=== PATIENT | male | born 1965 | race Caucasian/White ===

== ENCOUNTER 2023-10-21 05:42 | Inpatient (IN) | payer MEDICARE, OTHER ==
[~2023-10-21] VITALS: Ht 177.8 cm; Wt 61.0 kg
[~2023-10-21 05:42] MED LIST: DIVALPROEX SOD500 M1 PO; DOXEPIN HCL50 MG PO; FENOFIBRATE160 MG PO; LISINOPRIL20 MG PO; METFORMIN HCL500 M1 PO; NORCO 5-325 TA1 EACH PO; PIOGLITAZONE HC30 MG PO; SIMVASTATIN40 MG PO; SYNTHROID88 MCG PO; ZIPRASIDONE HCL80 MG PO
[2023-10-21 06:27] LABS: BASOPHILS 0.1 % (0-2); EOSINOPHILS 0.1 % (0-6); HEMATOCRIT 42.5 % (35.0-50.0); HEMOGLOBIN 14.3 g/dL (12.0-18.0); LYMPHOCYTES 1.9 % (24-44); MCH 33.1 (27-36); MCHC 33.7 g/dl (30-36); MCV 98.3 fl (81-99); MONOCYTES 5.3 % (0-12); NEUTROPHILS 92.6 % (39-80); PLATELET COUNT 295 K/uL (140-440); RBC 4.32 M/ul (4.3-5.7); RDW 12.6 (10.5-15.0)
[2023-10-21 06:42] LABS: ALCOHOL, MEDICAL <3 ng/dL (<3); ALT (SGPT) 26 U/L (14-59); ANION GAP 15.7 (7-21); AST (SGOT) 27 U/L (15-37); BUN/CREATININE RATIO 17.15 (6.0-28.6); CALCIUM 9.9 mg/dL (8.5-10.1); CARBON DIOXIDE 26 mmol/L (21-32); CHLORIDE 91 mmol/L (98-107); CREATININE, SERUM 1.69 mg/dL (0.70-1.30); GLOMERULAR FILTRATION RATE,EST 46 mL/min (>60); POTASSIUM 4.7 mmol/L (3.5-5.1); UREA NITROGEN 29 mg/dL (7-18)
[2023-10-21 07:01] LABS: ALBUMIN 2.6 g/dL (3.4-5.0); ALBUMIN/GLOBULIN RATIO 0.45 (1.1-2.4); ALKALINE PHOSPHATASE 146 U/L (46-116); BILIRUBIN, TOTAL 0.5 ng/dL (0.2-1.0); PROTEIN, TOTAL 8.4 g/dL (6.4-8.2)
[2023-10-21 07:27] LABS: LACTIC ACID, BLOOD 1.9 mmol/L (0.4-2.0)
[2023-10-21 07:36] LABS: BILIRUBIN, URINE NEGATIVE (negative); BLOOD/HGB, URINE SMALL (Negative); KETONE, URINE SMALL (Negative); LEUK ESTERASE, URINE NEGATIVE (negative); NITRITE, URINE NEGATIVE (negative)
[2023-10-21 07:47] LABS: EPITHELIAL CELLS, URINE SQUAMOUS 1+ /lpf (0-1+); REFLEX CULTURE, URINE No (No)
[2023-10-21 08:23] LABS: AMPHETAMINES, URINE POSITIVE (NEGATIVE); BARBITURATES, URINE NEGATIVE (NEGATIVE); BENZODIAZEPINE, URINE NEGATIVE (NEGATIVE); BUPRENORPHINE, URINE NEGATIVE (NEGATIVE); CANNABINOID, URINE POSITIVE (NEGATIVE); COCAINE, URINE NEGATIVE (NEGATIVE); ECSTASY, URINE NEGATIVE (NEGATIVE); FENTANYL, URINE NEGATIVE (NEGATIVE); METHADONE, URINE NEGATIVE (NEGATIVE); OPIATES, URINE NEGATIVE (NEGATIVE); OXYCODONE, URINE NEGATIVE (NEGATIVE); PHENCYCLIDINE, URINE NEGATIVE (NEGATIVE)
--- NOTE | 2023-10-21 11:18 | NUR ---
Pt arrived to room via ER stretcher and transferred to hospital bed independently, unassisted. Pt report received from RN Vanesa Tyler. Pt is A&O x4, breathing is regular, even, and non-labored, and he is able to speak in full and complete sentences. His skin is appropriately colored, warm and dry with poor turgor. He denies any pain at this time. Strength is equal bilaterally in upper and lower extremities and CMS is intact x4, cap refill 2 seconds. Pt's speech is slightly slurred at times (unknown if this is his baseline), and he is also, at times, difficult to understand. He is quick to respond to questions, appropriately, but immediately starts talking about random topics, mostly about his brother and how he steals from him and folds papers "weird". Pt's lungs are clear, diminished, and he has a cough that sounds productive at times but is mostly harsh, unable to produce/cough up sputum. IV is patent with good return, flushes well with 10ml NS and 1L bolus LR was started per emar. Pt's CBG was 375; however, the Pyxis is not loading meds for this patient and I have been unable to administer 9 units of insulin per his emar sliding scale, as of yet. Pt lunch tray arrived after admission and he has been eating some of his food. He advised, while admitting questions were asked, that he hasn't eaten food since "last " and that he's been drinking lots of "milk" for his food. He states he had milk this morning before coming to the ED. Side rails up x4, warm blanket provided, call light in reach, pt oriented to room and instructed on use of call light. Pt verbalized understanding and questions were answered.
[2023-10-21 11:31] VITALS: BP 117/65
[2023-10-21 11:58] LABS: VALPROIC ACID 10 ug/mL (50-100)
--- NOTE | 2023-10-21 13:07 | NUR ---
ATTEMPTING TO ASSIST PT WITH LOCATING A PHONE NUMBER FOR NEXT OF KIN CONTACT INFORMATION. PT STATES HE HAS A SISTER NAMED "KARL" THAT HE IS COMFORTABLE WITH US CONTACTING IF NEEDED, BUT HE DOESN'T KNOW HER PHONE NUMBER. HE STATES HE HAS IT WRITTEN DOWN IN HIS WALLET BUT HAS PULLED ALL THE PAPERS OUT OF HIS WALLET AND HAS NOT LOCATED HER NUMBER YET. HE DOESN'T KNOW HIS BROTHER'S NUMBERS AND STATES, IF I READ A NUMBER OUT TO HIM, HE WOULDN'T BE ABLE TO TELL ME WHOSE IT WAS. I ENCOURAGED HIM TO KEEP TRYING TO FIND HIS SISTER'S NUMBER. HE AGREED TO KEEP LOOKING.
--- NOTE | 2023-10-21 13:25 | NUR ---
ADVISED BY KOBY CARTY CIVIL RIGHTS INVESTIGATOR, THAT THE PT LOCATED HIS SISTER'S PHONE NUMBER AND THAT SHE WROTE IT ON THE BOARD IN HIS ROOM. SHE ALSO ADVISED THAT SHE ASSISTED THE PT TO THE TOILET.
[2023-10-21 14:01] VITALS: BP 146/78
--- NOTE | 2023-10-21 14:05 | NUR ---
Pt's sister, Mckenna Orellana, called to request and update on her brother. I obtained permission from the pt prior to updating his sister. The pt gave verbal permission to let his sister know why he's here and any updates on his care. She left her phone number for us to call if we need anything, and also advised that their sister, Kelsy, is out of town. Shortly after concluding this phone call, the pt's brother, Vicente, arrived to visit the pt. He entered the pt's room and began to question the pt as to why he didn't "come and wake me up this morning instead of calling 911", and proceeded to argue with the pt. I left the room to give them some privacy and the brother exited the room about 60 seconds after I did.
--- NOTE | 2023-10-21 15:23 | NUR ---
In with pt for late sliding scale insulin administration (medications not loaded under pt's name in pyxis, scrap charger had to override, pharmacy is aware). Pt is resting with eyes closed, on his left side, in bed. Lights are off and he is snoring softly. Breathing is regular and even, non-labored, only the soft snoring. Pt does not fully awaken but motions "ok" with his hand when advised that I am there to administer some insulin into the skin in the back of his arm, and he turns his arm so I can reach the back. After administration of insulin sq, the pt seems to fall right back to sleep. LR running at 100ml/hr per emar. Call light in reach. Side rails up x4.
--- NOTE | 2023-10-21 17:23 | NUR ---
In with pt for med administration and insulin with dinner for cbg of 326. Pt is resting semi supine, leaned slightly towards his left side, snoring softly. breathing is regular and non-labored. IV fluids running at ordered rate. Side rails up x4, call light in reach, dinner tray on bedside table. Pt is easily awakened to voice. Dinner set up for pt and insulin and ABX administered per emar.
[2023-10-21 17:28] VITALS: BP 139/66
--- NOTE | 2023-10-21 17:36 | NUR ---
Pt's VS obtained, he is tachypneic, slightly tachycardic 100-112, T99.8 orally, spo2 88% on room air. Pt was placed on 2LPM via NC which increased his O2 to 91% while he is eating his dinner. Will reassess after he finishes eating and will monitor. Pt is A&O x4, skin is appropriately colored, no increased work of breathing, just breathing at a rate, currently of 24bpm, even respirations, through his nose. Pt given tylenol per emar for headache and pain in his chest from coughing. Call light in reach, side rails up x4.
--- NOTE | 2023-10-21 19:44 | NUR ---
REPORT RECEIVED FROM JUAN GALAN. pt RESTING IN BED ASLEEP, SPOT CHECK SPO2 92% WITH 2L OXYGEN BY NC IN PLACE. pt DENIES NEEDS. TRAY TABLE CLEARED. CALL LIGHT IN REACH. BED ALARM ON.
--- NOTE | 2023-10-21 22:04 | NUR ---
PT ASLEEP, AWAKEN FOR ACCUCHECK, BG 174, RESULTS REPORTED TO KERRY MARTINEZ. PT WITHOUT REQUESTS AT THIS TIME.
--- NOTE | 2023-10-21 22:10 | NUR ---
REPORT RECEIVED FROM KERRY MARTINEZ, ASSUMING CARE OF PT AT THIS TIME.
[2023-10-21 22:17] VITALS: BP 114/58
--- NOTE | 2023-10-21 22:18 | NUR ---
RN TO BEDSIDE, PT AWAKEN FOR VS, VS DONE AND NOTED TEMP 99.7 PO, OXYGEN SATS 88-90, OXYGEN TURNED UP TO 3L/NC WITH SATS RISING TO 92%, ASSESSMENT COMPLETED, MOIST COUGH AT TIMES, PT STATES IT IS PAINFUL TO COUGH AT TIMES, BREATH SOUNDS CLEAR JOANNA AND LLL, BUT DIM RUL AND RLL, IV SITE PATENT, IV INFUSING WELL WITH LR AT 100ML/HR, PANTS REMOVED AND BELONGINGS PLACED IN ROOM LOCK BOX (2 SETS OF KEYS, DIRECTOR WATER AND WASTE SERVICES, CHAP STICK, ROCK AND 2 SMALL PIECES OF PAPER), WARM BLANKET GIVEN, PT ALERT, COOPERATIVE, AT TIMES RAMBLES IN SPEECH, PT TURNED TO LEFT SIDE ATTEMPTING TO SLEEP..
--- NOTE | 2023-10-22 00:50 | NUR ---
PT APPEARS TO SLEEP, RESP EVEN AND REG, LAYING ON LEFT SIDE, OX SAT 99%, FIO2 DECREASED TO 2L/NC, IVF INFUSING WELL, PT WITHOUT DISTRESS.
[2023-10-22 02:13] VITALS: BP 119/62
--- NOTE | 2023-10-22 02:17 | NUR ---
PT ASLEEP, AWAKEN FOR VS, PT FEBRILE AT 99.9 PO, PT SKIN MOIST, WARM, PT MEDICATED WITH TYLENOL 650MG PER ORDER FOR FEVER, PT DENIES NEED TO VOID OR FOR A DRY GOWN, PT TURNED SELF TO RIGHT SIDE, BREATH SOUNDS CLEAR RUL, CLEAR BUT DIM RLL, COARSE BUT DIM JOANNA AND LLL, MOIST NONPRODUCTIVE COUGH, AFTER TURNING TO RIGHT SIDE, SATS DOWN TO 88-90%, FIO2 INCREASED TO 3L/NC, ACCUCHECK DONE DUE TO SWEATY SKIN, 155, IV PATENT, IVF INFUSING WELL.
--- NOTE | 2023-10-22 02:50 | NUR ---
NURSE CALLED TO ROOM, PT DESIRES TO STAND AT BEDSIDE TO VOID, PT STEADY WITH STANDING, VOIDED 300ML BABAK URINE, PT DESIRES TO SIT ON SIDE OF BED FOR A WHILE.
--- NOTE | 2023-10-22 03:10 | NUR ---
PT GOT HIMSELF BACK IN BED, APPEARS TO SLEEP, IVF INFUSING WELL, SITE INTACT, OXYGEN SATS 88% FIO2 INCREASED TO 3.5 L/NC.
[2023-10-22 05:36] LABS: HEMATOCRIT 34.4 % (35.0-50.0); HEMOGLOBIN 11.5 g/dL (12.0-18.0); MCH 32.7 (27-36); MCHC 33.6 g/dl (30-36); MCV 97.5 fl (81-99); PLATELET COUNT 289 K/uL (140-440); RBC 3.53 M/ul (4.3-5.7)
[2023-10-22 05:40] VITALS: BP 115/62
--- NOTE | 2023-10-22 05:40 | NUR ---
PT ASLEEP, AWAKEN BRIEFLY FOR VS, TEMP 99.5 PO, IV PATENT AND INFUSING WELL, LAB RECENTLY IN FOR AM BLOOD WORK. OXYGEN TURNED DOWN TO 3L/NC WHEN SAT AT 97%, SATS REMAIN 97-98% WITH DECREASE OF OXYGEN.
--- NOTE | 2023-10-22 05:46 | EKG ---
[facility] [address] [place], [place] [address] Signed Sinus tachycardia Biatrial enlargement Minimal voltage criteria for LVH, may be normal variant ( Sokolow-Sharp ) Abnormal ECG No previous ECGs available Confirmed by YAO DESOUZA MD ([id number]) on 10/22/2023 5:45:49 AM Electronically Signed By: AYO DESOUZA 10/22/23 0546 PATIENT NAME: CHAD CACERES Electrocardiogram DATE OF : 65 PHYSICIAN: AYO DESOUZA REPORT #: [id number] REPORT IS CONFIDENTIAL AND NOT TO BE RELEASED WITHOUT AUTHORIZATION
[2023-10-22 05:55] LABS: BUN/CREATININE RATIO 24.24 (6.0-28.6); CREATININE, SERUM 1.32 mg/dL (0.70-1.30)
[2023-10-22 06:16] LABS: BANDS, MANUAL DIFF 3; LYMPHOCYTES, MANUAL DIFF 7; MONOCYTES, MANUAL DIFF 5; NEUTROPHILS, MANUAL DIFF 85
--- NOTE | 2023-10-22 06:37 | NUR ---
PT ASLEEP, RESP EVEN AND REG, HOB ELEVATED APPROX 30%, OX SAT 97-98%, FIO2 DECREASED TO 2L/NC.
--- NOTE | 2023-10-22 07:30 | NUR ---
Pt report received from JUAN Loza. Pt is asleep on his right side. Call light in reach.
--- NOTE | 2023-10-22 08:21 | NUR ---
UR NOTE MCG PNEUMONIA: OBSERVATION CARE (ISC) 10/21/23 MET OBSERVATIO CARE ADMISSION CRITERIA
--- NOTE | 2023-10-22 08:42 | NUR ---
In with pt for med administration per emar. Pt is asleep, breathing regular, even, and non-labored and he is snoring softly, eyes closed. Wakes easily to gentle touch on shoulder and voice. IV fluids running per emar. Breakfast tray at bedside. call light in reach.
--- NOTE | 2023-10-22 09:00 | NUR ---
In with pt, Dr. Arevalo in for assessment. Pt is sitting up in bed eating his breakfast. Room air spo2 87% and dropped as low as 83%. Pt was placed on 2LPM via NC which increased his sats to 84-86. O2 increased to 4LPM which increased sats to 87%. Pt was placed on 4LPM via oxymask which increased his spo2 to 92%. Pt is tachypneic at 28-32, and tachycardic ranging from 102-126.
[2023-10-22 09:33] VITALS: BP 118/66
--- NOTE | 2023-10-22 11:20 | NUR ---
Attempted to see pt x 2 this am. Pt now somewhat awake and willing to speak with CM. Pt states he lives with his brother. There are 6 steps into the home. Pt states it is hard to get into and out of the home now since he has not been feeling well. Pt is difficult to follow as he is frequently speaking about his brother and family members and he is angry. I am unable to follow the conversation. Pt would like to go home on DC. 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 I attempted to discuss his meth use and he states his brother makes him take drug and then begins speaking rapidly. I asked if he would like to see [employer] and if he would be willing to work with their A&D program. He states he would. I will contact [employer] and request a referral to the ACT team. Per the ER notes, pt has not been taking his thyroid and DM meds correctly. He is unable to tell me if he takes his pych meds correctly.
[2023-10-22 14:50] VITALS: BP 136/76
--- NOTE | 2023-10-22 15:00 | NUR ---
PT IS UP IN CHAIR, SITTING AT THE EDGE OF IT, EYES CLOSED. ENCOURAGED PT TO SCOOT BACK IN HIS CHAIR OR GET BACK INTO BED. PT STATES HE IS NOT FALLING ASLEEP AND HE UNDERSTANDS THAT HE COULD GET HURT BUT HE IS "FINE WHERE I'M AT, I PROMISE I'M NOT SLEEPING AND I WON'T FALL". PT STATES HE UNDERSTANDS HE NEEDS TO USE HIS CALL LIGHT IF HE WANTS TO GET BACK INTO BED. CALL LIGHT IN REACH.
--- NOTE | 2023-10-22 15:52 | NUR ---
UR NOTE MCG PNEUMONIA (ISC) INPATIENT 10/22/23 MET CLINICAL INDICATIONS FOR ADMISSION TO INPATIENT CARE GL DAY 1
--- NOTE | 2023-10-22 16:00 | NUR ---
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 Will try again in the AM.
--- NOTE | 2023-10-22 18:14 | NUR ---
PT HAS BEEN IN BED AND SLEEPING FOR THE MAJORITY OF THIS SHIFT. RT HAS BEEN IN WITH PT FOR TOBACCO CESSATION COUNSELING AND THE PT HAS BEEN UTILIZING THE RESPIRATORY THERAPY TOOLS ORDERED, ALLOWING MORE MUCOUS TO BREAK UP WHEN HE COUGHS. THE PT HAS REPORTED LESS PAIN IN HIS CHEST TODAY WITH COUGHING, BUT HE HAS HAD SPO2 SATS IN THE 80S AND LOW 90S THROUGHOUT THE SHIFT. O2 VIA OXYMASK HAS BEEN TITRATED THROUGHOUT THE SHIFT TO MAINTAIN SATS AT OR ABOVE 92%. THEY SEEM TO DECREASE WHEN HE IS SITTING UP IN BED EATING, OR SITTING UP THE CHAIR (WHICH HE DID FOR A COUPLE OF HOURS THIS AFTERNOON). THE PT HAS NOT HAD MUCH TO EAT TODAY, COMPLAINING THAT HE CAN'T TASTE ANYTHING AND THAT IT MAKES HIS MOUTH VERY DRY. DR. DESOUZA ORDERED A COVID TEST. PT HAS VOIDED X2 IN THE URINAL WITH APPROXIMATELY 300ML DARK BABAK URINE EACH TIME. HE USES THE CALL LIGHT APPROPRIATELY.
[2023-10-22] MEDS ORDERED: MELATONIN10 M2 PO (18:44)
--- NOTE | 2023-10-22 18:45 | NUR ---
MED REC COMPLETE
[2023-10-22 19:12] VITALS: BP 133/75
--- NOTE | 2023-10-22 19:15 | NUR ---
SHIFT REPORT RECEIVED FROM ADAMA MARTINEZ.
[2023-10-22 19:22] LABS: INFLUENZA B NAA NEGATIVE (NEGATIVE); RESPIRATORY SYNCYTIAL VIR NAA NEGATIVE (NEGATIVE)
--- NOTE | 2023-10-22 19:30 | NUR ---
PT RESTING QUIETLY IN BED, AWAKEN AND PLEASANT, OXYGEN MASK IN PLACE AT 4L, CPOX SAT 92%, PT DENIES COMPLAINTS AT THIS TIME, BED LOW POSITION, SIDE RAILS UP X 2.
[2023-10-22 20:50] VITALS: BP 140/74
--- NOTE | 2023-10-22 20:50 | NUR ---
VS COMPLETED, OXYGEN MASK REMOVED AND NC IN PLACE AT 4L/NC, SATS AT 92%, PLAN TO MONITOR, PT ALERT AND COOPERATIVE.
--- NOTE | 2023-10-22 21:05 | NUR ---
ACCUCHECK DONE, CURRENTLY AT 198, SS HUMALOG 3 UNITS GIVEN , RT LONG ACTING INSULIN GIVEN PER ORDER WITH RT MEDICATIONS. PT MEDICATED WITH TYLENOL FOR RIB DISCOMFORT, ASSESSMENT COMPLETED, PT TALKATIVE, COOPERATIVE AND PLEASANT, ENSURE GIVEN PER REQUEST. PT RESTING, SIDE RAILS UP X 4, BED LOW POSITION, CALL LIGHT IN REACH, HOB ELEVATED APPROX 25 DEGREES.
--- NOTE | 2023-10-22 22:30 | NUR ---
PT APPEARS TO SLEEP, RESP EVEN AND REG, CPOX AT 95%, HR 106 AND RESP RATE 24, WITHOUT SIGNS OF DISTRESS, OXYGEN REMAINS AT 4L/NC.
--- NOTE | 2023-10-23 | NUR ---
PT APPEARS TO SLEEP, LAYING ON RIGHT SIDE, OXYGEN NOTED TO BE IN PLACE, CPOX AT 97%, HR 97 AND RESP RATE OF 24/MIN, URINAL EMPTIED FOR 300ML BABAK URINE.
--- NOTE | 2023-10-23 01:00 | NUR ---
PT CONTINUES TO SLEEP, WITHUT REQUESTS AT THIS TIME.
--- NOTE | 2023-10-23 02:45 | NUR ---
PT ASLEEP, LAYING ON RIGHT SIDE, OXYGEN IN PLACE AND CONTS AT 4L/NC, SATS 96%, RESP RATE 24/MIN.
--- NOTE | 2023-10-23 04:02 | NUR ---
PT LAYING ON LEFT SIDE, RESP EVEN AND REG, O2 SAT 96%,
[2023-10-23 05:10] VITALS: BP 130/81
--- NOTE | 2023-10-23 05:10 | NUR ---
LAB INTO DRAW AM BLOOD, PT SLEEPY BUT ALERT, VS STABLE, AFEBRILE, PT'S GOWN DAMP, CHANGED, PT C/O LEFT RIB PAIN WITH COUGHING, PT VOIDING PER URINAL.
--- NOTE | 2023-10-23 05:21 | NUR ---
PT MEDICATED WITH TYLENOL FOR LEFT SIDED RIB PAIN, FRESH WATER GIVEN, PT DENIES OTHER REQUESTS, ATTEMPTING TO REST.
[2023-10-23 05:31] LABS: BASOPHILS 0.1 % (0-2); EOSINOPHILS 0.1 % (0-6); HEMATOCRIT 36.5 % (35.0-50.0); HEMOGLOBIN 12.1 g/dL (12.0-18.0); LYMPHOCYTES 5.7 % (24-44); MCV 96.9 fl (81-99); MONOCYTES 7.6 % (0-12); NEUTROPHILS 86.5 % (39-80); PLATELET COUNT 363 K/uL (140-440); RBC 3.77 M/ul (4.3-5.7); RDW 13.2 (10.5-15.0)
[2023-10-23 05:41] LABS: BUN/CREATININE RATIO 22.68 (6.0-28.6); CALCIUM 9.1 mg/dL (8.5-10.1); CREATININE, SERUM 1.19 mg/dL (0.70-1.30)
--- NOTE | 2023-10-23 06:48 | NUR ---
PT ASLEEP, RESP EVEN AND REG, SATS 94%.
--- NOTE | 2023-10-23 07:42 | NUR ---
BEDSIDE REPORT FROM HS NURSE, PATIENT APPEARED TO BE RESTING WITH EYES CLOSED. CALL LIGHT WITHIN REACH.
--- NOTE | 2023-10-23 07:51 | NUR ---
DID PATIENT'S BLOOD SUGAR CHECK. PATIENT IS BACK TO SLEEP. UPDATE WHITE BOARD.
[2023-10-23 09:12] VITALS: BP 136/75
--- NOTE | 2023-10-23 09:50 | NUR ---
Attempted to speak with pt today. Initially he was able to answer questions and agree to follow up appt with Denise at [facility]. He is also agreable to speak with their drug counselors. He then began speaking rapidly, stating his brother is in his cell phone. He has phone numbers from the "coffee hour" to turn people in for their drug use. I was not able to follow the conversation. He denies needs and is eating his breakfast. I attempted to contact Denise at [facility], but there was 0 answer at the main number. I will attempt to call again later.
--- NOTE | 2023-10-23 10:00 | NUR ---
FULL BODY ASSESSMENT DONE, PATIENT INTO BATHROOM, SHOWERED SELF THEN TO RECLINER. CHANGED LINEN. VS WNL. ADMINISTERED MORNING MEDICATION. PATIENT EATING BREAKFAST. PATIENT 94% ON 4L NC. NOTED DRY NASAL, APPLIED HUMIDIFICATION. CALL LIGHT WITHIN REACH.
--- NOTE | 2023-10-23 11:22 | NUR ---
Attempted to call [employer]. No answer.
--- NOTE | 2023-10-23 14:00 | NUR ---
PATIENT HAD COUGHING ATTACK, APPEARED TIRED AND RESTLESS. OXYGEN SATURATION 94% ON 3L NC. LUNG SOUNDS COURSE IN UPPER LOBES AND DIMINISHED IN BASES/ PATIENT USING IS AND ACUPELLA. STATES " I DON'T LIKE RATTLING MY SELF WITH THE HORN".
[2023-10-23 14:13] VITALS: BP 140/73
--- NOTE | 2023-10-23 15:15 | NUR ---
Called and left a message for Denise, case management coordinator, from [facility]. Requested a return call.
--- NOTE | 2023-10-23 18:00 | NUR ---
DISCUSSED PATIENT COUGHING ATTACKS AND WHAT APPEAR TO BE BRONCHOSPASMS WITH DR. DESOUZA. PATIENT REPORTS HE IS FEELING WORSE. NOTED INCREASED CONGESTION. DR. DESOUZA TO BEDSIDE, ORDERED OCEAN SPRAY FOR NASAL CONGESTION. REQUESTED BREATHING TREATMENTS AND DISCUSSED STEROID TREATMENT, NO NEW ORDERS FOR THOSE AT THIS TIME. DR. DESOUZA REPORTED WOULD RE-ASSESS IN THE MORNING.
[2023-10-23 19:01] VITALS: BP 165/80
--- NOTE | 2023-10-23 19:30 | NUR ---
RECEIVED REPORT FROM DAY SHIFT RN. PATIENT IS RESTING IN BED. PATIENT DENIES ANY SOB. PATIENT IS ON 3L VIA NC. CPOX READINGS ARE WNL. PATIENT DENIES ANY NEEDS. CALL LIGHT IN REACH.
[2023-10-23 19:58] VITALS: BP 159/71
--- NOTE | 2023-10-23 20:35 | NUR ---
PATIENTS VITALS TAKEN AND RECORDED. INTAKE AND OUTPUT RECORDED. PATIENTS ASSESMENT COMPLETED. PATIENTS IV FLUSHED AND SL PER ORDER. PATIENT REMAINS ON 3L VIA NC AND DENIES ANY SOB. CPOX IN USE. PATIENTS PM MEDS GIVEN PER ORDER. PATIENT RATES LEFT SIDED RIB PAIN AT A 2/10, PRN TYLENOL GIVEN PER ORDER. PATIENT LULU ANY FURTHER NEEDS AT THIS TIME. PATIENTS CALL LIGHT AND BELONGINGS ARE WITHIN REACH.
--- NOTE | 2023-10-23 22:24 | NUR ---
PATIENT IS RESTING IN BED ON RIGHT SIDE WITH EYES CLOSED, CPOX READINGS ARE WNL. PATIENTS CALL LIGHT IN REACH.
--- NOTE | 2023-10-23 23:42 | NUR ---
PATIENT IS RESTING IN BED WITH EYES CLOSED, CPOX READINGS ARE WNL. CALL LIGHT IN REACH. URINAL EMPTIED.
--- NOTE | 2023-10-24 01:24 | NUR ---
PATIENT IS RESTING IN BED WITH EYES CLSOED, CPOX READINGS ARE WNL. CALL LIGHT IN REACH.
--- NOTE | 2023-10-24 03:33 | NUR ---
PATIENT IS RESTING IN BED WITH EYES CLSOED, CPOX READINGS ARW WNL. CALL LIGHT IN REACH.
[2023-10-24 05:43] LABS: HEMATOCRIT 36.3 % (35.0-50.0); RBC 3.72 M/ul (4.3-5.7)
[2023-10-24 05:46] LABS: MCH 32.3 (27-36); MCV 97.7 fl (81-99); PLATELET COUNT 387 K/uL (140-440); RDW 13.4 (10.5-15.0)
[2023-10-24 05:54] LABS: BUN/CREATININE RATIO 17.3 (6.0-28.6); CALCIUM 9.1 mg/dL (8.5-10.1); CREATININE, SERUM 1.04 mg/dL (0.70-1.30)
[2023-10-24 05:57] LABS: BANDS, MANUAL DIFF 4; LYMPHOCYTES, MANUAL DIFF 6; MONOCYTES, MANUAL DIFF 8; NEUTROPHILS, MANUAL DIFF 82
[2023-10-24 06:12] VITALS: BP 141/85
--- NOTE | 2023-10-24 06:32 | NUR ---
PATIENTS VITALS TAKEN AND RECORDED. PATIENT INCONT OF STOOL. PATIENT GIVEN WIPE DOWN BATH WITH SOAP AND WASH RAGS. ATTEND IN PLACE. PATIENTS BEDDING CHANGED. PATIENTS INTAKE AND OUTPUT RECORDED. PATIENT DENIES ANY PAIN OR SOB. PATIENT REMAINS ON 3L VIA NC. PATIENT IS BACK IN BED RESTING. PATIENT DENIES ANY FURTHER NEEDS. CALL LIGHT IN REACH. PATIENTS IV FLUSHED AND SL PER ORDER. CPOX IN USE.
--- NOTE | 2023-10-24 08:00 | NUR ---
PT ON 3LNC, CPOX AT BEDSIDE, SATS 92%, SWHEN SITTING UP IN BED FOR ASSESSMENT, INCREASED MOIST PRODUCTIVE COUGH PRESENT W EXPECTORATION OF SMALL AMOUNT OF VERY THICK CLEAR PHLEGM. C/O MILD DISCOMFORT ON LEFT SIDE. LUNGS CLEAR UPPERS AND DIM R, RHONCHI AND DIM AT LEFT LOWER. SL LFA PATENT. UP TO CHAIR WITH MINIMUM OF ASSIST, USED URINAL. IN CHAIR NOW, LEGS ELEVATED, TOLERATED WELL. CBG 162, RECEIVED 1 UNIT SS INSULIN. O2 NOT CHRONIC, DR DESOUZA IN ROOM EARLIER. RT IN ROOM EXPLAINING VPA
--- NOTE | 2023-10-24 09:06 | NUR ---
REFERRAL REQUEST FOR ACT TEAM ASSISTANCE FAXED TO [employer] @ [phone].
--- NOTE | 2023-10-24 09:47 | NUR ---
RECVD CALL FROM DARRIN, PATIENTS COUNSELOR AT [facility]. UPDATE GIVEN. DARRIN WILL DISCUSS WITH THE CRISIS TEAM AND COME VISIT THE PATIENT. DIANA MARTINEZ UPDATED.
[2023-10-24 10:06] VITALS: BP 151/80
--- NOTE | 2023-10-24 10:17 | NUR ---
Pt up to br earlier, was incontinent of loose stool, plus more liquid stool in toilet. did own skin care, light redness between gluteal folds, barrier cream applied. fresh attends in place. voided using urinal, dark yellow urine. O2 in place. Back to room, noticed that pulse was 122 on return, inmediately went down to 108-100 when laying down in bed, daxa sob, no increase in respiration noted. Dr Arevalo notified verbally. .
--- NOTE | 2023-10-24 11:19 | NUR ---
Up to shower w O2, slow getting out of bed, no sob. SBA, sats 91% 3L NC pulse 107, R18
--- NOTE | 2023-10-24 11:22 | NUR ---
BC results - carlos nicole, Dr Arevalo aware
--- NOTE | 2023-10-24 11:44 | NUR ---
UR NOTE MCG PNEUMONIA (ISC) INPATIENT 10/23/23 VARIANCE GL DAY 2 10/24/23 VARIANCE GL DAY 2
--- NOTE | 2023-10-24 11:48 | NUR ---
KARTHIKEYAN SEBASTIAN NOTIFIED OF PT READY FOR ABGS'S. DR DESOUZA NOTIFIED VERBALLY OF PTS INCREASED PULSE RATE WITH EXERTION - PULSE 107, RESP 18, SATS 91% ON 3L SITTING POSITION PRIOR TOG ETTIING UP TO SHOWER. AFTER RETURNING FROM SHOWER, STANDING -PULSE-122, R20, O2 SATS ON 3L 93%, R20, O2 SATS ON 3LNC 93%. ---- AFTER GETTING IN BED PULSE 107, RESP 16-18, PULSE 96% ON 3LNC. PT DENIES SOB OR PAIN ON RETURN, TOLERATED WELL.
--- NOTE | 2023-10-24 12:07 | NUR ---
ABG'S DONE BY RT PER ORDERS
--- NOTE | 2023-10-24 12:11 | NUR ---
[employer] WORKER IN ROOM TALKING TO PT
--- NOTE | 2023-10-24 12:14 | NUR ---
SHOWERED EARLIER, SEE PREVIOUS NOTES. CURRENTLY LAYING IN BED, [employer] WORKER IN ROOM
[2023-10-24 13:27] VITALS: BP 141/75
--- NOTE | 2023-10-24 13:38 | NUR ---
pt was resting, eyes closed, no distress. O2 3LNC in place, CPOX readings P104, R16, O2 sats 90%. Awakens easily and up to chair with minimum of assist. Up in hcair at this tiime, as per CPOX P118, R18, sats 91% on 3LNC, tolerated well, denies SOB or CP. Moist slightly productive at times cough. Coop with assessment, L Lung dim t/o with exp crackles at bases. Dr Arevalo notified verbally. no new orders
--- NOTE | 2023-10-24 14:00 | NUR ---
RECIEVED HAND OFF REPORT FROM JUAN ORTIZ.
--- NOTE | 2023-10-24 14:19 | NUR ---
PT UP IN CHAIR EATING, NO C/O PAIN OR SOB. O2 3LNC IN PLACE.
--- NOTE | 2023-10-24 14:35 | NUR ---
PT SITTING IN RECLINER WORKING ON HIS ACAPELLA. PT DENIES ANY DISCOMFORT AT THIS TIME. CALL LIGHT IN REACH.
--- NOTE | 2023-10-24 15:12 | NUR ---
PATIENT UP IN CHAIR FOR AND AFTER LUNCH. HE ATE 100% OF THE POT ROAST, A FEW BITES OF MASHED POTATOES/GRAVY, AND 100% OF SF JELLO. HE DIDN'T DRINK HIS MILK BUT HE DOES LIKE MILK. HIS APPETITE IS FAIR DUE TO SOME MEALS THE TASTE ISN'T GOOD TO HIM SO HE DOESN'T EAT MUCH OF IT. STATES HE HASN'T HAD ANY WEIGHT LOSS, THAT HE MAINTAINS 140-145 LBS WELL. HIS TEETH ARE IN GOOD, STRONG CONDITION. HE HAS NO CHEWING OR SWALLOWING DIFFICULTIES. LIKES RAW CARROTS, NOT COOKED. HE NORMALLY WALKS FOR EXERCISE SINCE HE CAN'T DRIVE. HE TRIES NOT TO CONSUME HFCS, AND HE LIMITS HIS BREAD AND POTATO INTAKE DUE TO SPIKING HIS BLOOD SUGAR. CURRENT DIET IS 60 GM CONS CARB WHICH IS APPROPRIATE. NO NUTRITION INTERVENTION NEEDED AT THIS TIME.
--- NOTE | 2023-10-24 16:25 | NUR ---
PT REQUESTED TO GO ON A WALK. PT WALKED TO THE END OF WATTS NEAR [facility]. WAS ABLE TO MAINTAIN SPO2 AT 93% ON RA, HR SUSTAINED IN 120S. MEANWHILE WORKING ON DEEP BREATHING. PT BEGAN TO TALK MORE, SPO2 DECREASED TO 81%. PT SAT IN WHEEL CHAIR AND ENCOURAGE TO TAKE DEEP BREATHES. SPO2 INCREASED TO 95% RA, HR REMAINED IN THE 120S. PT REQUESTED TO GO TO ROOM AND BLOW NOSE AND WALK TO THE CENTER AND BACK. SPO2 REMAINED AT 95% ON RA. LAKESHA JOLLY ASSISTED WITH AMBULATION. THIS RN FOLLOWED WITH WHEELCHAIR.
[2023-10-24 18:50] VITALS: BP 149/84
--- NOTE | 2023-10-24 19:42 | NUR ---
PATIENT RESTING IN BED WATHCING TV. PATIENT REPORTS NO FURTHER NEEDS. CALL LIGHT IN REACH.
[2023-10-24 20:33] VITALS: BP 153/77
--- NOTE | 2023-10-24 21:04 | NUR ---
PATIENT RESTING IN BED. VS AND I&Os OBTAINED AND RECORDED. O2 SAT 87% ON RA, RT IN ROOM AND PLACED PATIENT ON 2L NC. PATIENT TEMP 100.1. SCHEDULED MEDICATION GIVEN AND PRN MEDICATION GIVEN FOR FEVER, SEE MAR. ASSESSMENT COMPLETE. PATIENT LUNG SOUNDS CLEAR. IV FLUSHED AND SL. PATIENT EDUCATED TO USE IS AND ACAPELLA. PATIENT HAS NO FURTHER NEEDS. CALL LIGHT IN REACH.
--- NOTE | 2023-10-24 22:09 | NUR ---
PATIENT CALLED AND REQUESTED NEW GOWN. PATIENTS GOWN AND BEDDING ARE SOAKED. PATIENT PROVIDED WNEW BEDDING AND GOWN. PATIENT IS BACK IN BED RESTING. PATIENTS TEMP REEVALUATED AND IS WNL. PATIENT IS ON 2L VIA NC. PATIENT DENIES ANY FURTHER NEEDS. CPOX IN USE. CALL LIGHT IN REACH.
--- NOTE | 2023-10-25 00:23 | NUR ---
PATIENT IN BED RESTING ON BACK WITH EYES CLOSED. O2 SAT 97% ON 2L. RESPIRATIONS EVEN AND UNLABORED. CALL LIGHT IN REACH.
--- NOTE | 2023-10-25 02:09 | NUR ---
PATIENT IN BED RESTING ON RIGHT SIDE. 93% ON 2L NC. CALL LIGHT IN REACH. RESPIRATIONS EVEN AND UNLABORED.
--- NOTE | 2023-10-25 04:43 | NUR ---
PATIENT IN BED RESTING ON SIDE WITH EYES CLOSED. REPIRATIONS EVEN AND UNLABORED. PATIENT 92% ON 2L NC. CALL LIGHT IN REACH.
[2023-10-25 05:31] LABS: HEMATOCRIT 34.7 % (35.0-50.0); HEMOGLOBIN 11.4 g/dL (12.0-18.0); MCH 31.7 (27-36); MCHC 32.8 g/dl (30-36); MCV 96.9 fl (81-99); PLATELET COUNT 387 K/uL (140-440); RBC 3.58 M/ul (4.3-5.7); RDW 13.1 (10.5-15.0)
[2023-10-25 05:43] LABS: BUN/CREATININE RATIO 15.38 (6.0-28.6); CALCIUM 8.6 mg/dL (8.5-10.1); CREATININE, SERUM 1.04 mg/dL (0.70-1.30)
[2023-10-25 05:51] LABS: BANDS, MANUAL DIFF 6; LYMPHOCYTES, MANUAL DIFF 14; MONOCYTES, MANUAL DIFF 5; NEUTROPHILS, MANUAL DIFF 75
[2023-10-25 06:13] VITALS: BP 140/76
--- NOTE | 2023-10-25 06:21 | NUR ---
PATIENT RESTING IN BED. AWAKENS EASILY. VS AND I&Os OBTAINED AND RECORDED. PATIENT REPORTS 3/10 HEADACHE AND A TEMP OF 99.5. PRN PAIN MEDICATION ADMINISTERED SEE JAN. ASSESSMENT COMPLETE. PATIENT HAS NOTED RONCHI IN LUNGS. PATIENT ENCOURAGED TO COUGH AND DEEP BREATH, RONCHI NO LONGER HEARD. PATIENT 92% ON 2L NC. FRESH WATER PROVIDED. PATIENT HAS NO FURTHER NEEDS. CALL LIGHT IN REACH.
[2023-10-25] MEDS ORDERED: MUCINEX600 MG PO (06:42)
[2023-10-25] MEDS ORDERED: DEEP SEA44 ML NAS (06:42)
--- NOTE | 2023-10-25 08:39 | NUR ---
recieved report from nurse at 0717 o2 stats were at 97% and he was sleeping at the time. pt is currently awake sitting up in bed eating breakfast. no insulin needed all meds given. no other cares needed at this time call light within reach
[2023-10-25 09:31] VITALS: BP 137/72
--- NOTE | 2023-10-25 10:55 | NUR ---
MS JODI. PT RECEIVING NURSING CARE. DID NOT INTERRUPT. PROVIDED SILENT PRAYER.
--- NOTE | 2023-10-25 11:10 | NUR ---
PT IS ENCOURAGED TO USE VIBRA PEP AND INCENTIVE SPIROMETER. PT IS CURRENTLY 94% ON ROOM AIR ENCOURAGED TO DEEP BREATHE And cough in order to clear up lungs. NO OTHER CARES NEEDED OR REQUESTED AT THIS TIME. CALL LIGHT WITHIN REACH
--- NOTE | 2023-10-25 11:54 | NUR ---
VITALS AND I&OS CHARTED. PATIENT UP TO BR WITH SBA, URGENT NEED FOR BM. PATIENT CLEANED UP AND NEW BRIEF ON.
--- NOTE | 2023-10-25 12:31 | NUR ---
PT RECIEVED MEDS DEMONSTRATED AND TOLERATED FLONASE WELL AND IS CURRENTLY UP IN CHAIR EATING LUNCH. NO OTHER CARES NEEDED OR REQUESTED AT THIS TIME CALL LIGHT WITHIN REACH
[2023-10-25 13:46] VITALS: BP 110/85; BP 145/77
--- NOTE | 2023-10-25 13:47 | NUR ---
pt is currently up in chair brushing teeth. no concerns at this time no other cares needed. call light within reach
[2023-10-25 16:06] VITALS: BP 159/78
--- NOTE | 2023-10-25 16:09 | NUR ---
PT ASSISTED TO THE REST ROOM. PT IS CURRENTLY IN BED. PT LUNGS ARE CLEAR AFTER INCENTIVE SPIROMETER USE. PT ALSO SPIT UP SOME SPUTUM. PT TEMP IS CURRENTLY 98.0 AND O2 SATS ARE 95 ON ROOM AIR. NO CONCERNS OR OTHER CARES NEEDED OR REQUESTED AT [facility] TIME. CALL LIGHT WITHIN REACH
--- NOTE | 2023-10-25 17:59 | NUR ---
IN TO ANSWER CALL LIGHT. PT REQUESTING URINAL. PT NOTED TO BE SITTING ON EDGE OF BED EATING DINNER. URINAL PROVIDED. PT APPEARS DIAPHORETIC AND FACE NOTED TO BE PALE. THIS RN ASKED PT IF PT FELT DIZZY OR LIGHT HEADED. PT STATES "NO." PT DENIES ANY OTHER NEEDS AT THIS TIME. CALL LIGHT IN REACH. PRIMARY RN LATRICE NOTIFIED.
--- NOTE | 2023-10-25 18:10 | NUR ---
walked into pt room to find him sitting at edge of bed eating dinner but diaphoresing and looking pale. checked pt o2 sat and it read 98 checked blood pressure and it read 162/81 with a map of 98. and heart rate at rest is 112 and climbing. pt states that he gets this way when he eats certain foods like potatoes certain fruits and caertain breads. called dr alvarenga and relayed the information and states that he is coming down to check on him. pt is currently laying supine in bed semi fowlers and talking with nurse Andrade.
[2023-10-25 20:59] VITALS: BP 145/73
--- NOTE | 2023-10-25 21:25 | NUR ---
pt awake, up to br on room air, voided, back to bed, desatted to 86-87% p120. Placed back on O2 2LNC. CPOX at bedside, sats went up to 94% inmediately. after 1/2 hour he is at 98-99%, P111, R16. moist productive cough, denies c/o sob, O2 dc'd, back on room air. after 20 minutes on room air, sats 94%, p109, r16, denies c/o sob. Lungs coarse sounds bilat prior to CDB or IS usage. after CDB and IS usage, R clear, L faint crackles and dim at L base. SL LFA patent. SBA
--- NOTE | 2023-10-26 01:32 | NUR ---
PT AWAKE, USING HOME CPAP, NO DISTRESS, NO C/O PAIN, FRESH WATER GIVEN, URINAL EMPTIED. REPOSITIONS SELF IN BED.
--- NOTE | 2023-10-26 02:52 | NUR ---
RESTING, NO DISTRESS, O2 TITRATED TO 1L NC, SATS 91%, NO DISTRESS. USING URINAL
--- NOTE | 2023-10-26 04:27 | NUR ---
on 1LNC O2, cpox on at bedside, sats 92%, p105, R14. no distress
--- NOTE | 2023-10-26 05:26 | NUR ---
Pt resting on his back. O2 0.5L NC, pulse 101 at this time, no respiratory distress, Continues to have moist productive cough at times. Lungs clear after CDB and IS usage. using urinal and walked to BRP earlier on shift. Was anxious and irritable at begining of shift, easily redirectable, concerned aout living situation, reassured. Continues to reassure, encourage increase ADLS, ambulation, and med and diet compliance when at home.
[2023-10-26 05:39] LABS: HEMATOCRIT 33.4 % (35.0-50.0); HEMOGLOBIN 10.9 g/dL (12.0-18.0); MCH 31.8 (27-36); MCHC 32.7 g/dl (30-36); MCV 97.4 fl (81-99); PLATELET COUNT 423 K/uL (140-440); RBC 3.44 M/ul (4.3-5.7); RDW 13.4 (10.5-15.0)
[2023-10-26 05:48] LABS: ANION GAP 9.8 (7-21); BUN/CREATININE RATIO 15.78 (6.0-28.6); CALCIUM 8.7 mg/dL (8.5-10.1); CREATININE, SERUM 0.95 mg/dL (0.70-1.30); POTASSIUM 3.8 mmol/L (3.5-5.1)
[2023-10-26 05:54] LABS: BANDS, MANUAL DIFF 5; LYMPHOCYTES, MANUAL DIFF 5; MONOCYTES, MANUAL DIFF 2; NEUTROPHILS, MANUAL DIFF 88
--- NOTE | 2023-10-26 07:32 | NUR ---
REPORT ERECEIVED FROM WINDOWS SYSTEMS ADMIN RN DIANA. PATIENT RESTING WITH EYES CLOSED. RESPIRATIONS ARE EVEN AND UNLABORED. CALL LIGHT AND PERSONAL BELONGINGS ARE WITHIN REACH.
--- NOTE | 2023-10-26 08:50 | NUR ---
PATIENT FULL ASSESSMENT COMPLETE AND DOCUMENTED IN THE CHART. 0800 AND 0900 MEDICATIONS ADMINISTERED PER THE EMAR. PATIENT ROCEPHIN INFUSING IN THE LEFT FOREARM. PATIENT EXPRESSED HAVING 5-6/10 PAIN IN THE BACK AND SIDES DUE TO COUGHING. PATIENT LUNG SOUNDS WITH EXPIRATORY WHEEZING IN THE UPPER LUNG RASHID BILATERALLY AND CLEAR BUT DIMINISHED LUNG SOUNDS BILATERALLY IN THE LOWER LUNG RASHID. PATIENT TACHYCARDIC UPON AUSCULTATION. PATIENT ON ONE LITER NASAL CANNULA AT THIS TIME. PULSE STRONG IN UPPER AND LOWER EXTREMITITES. CAPILLARY REFILL LESS THAN 3 SECONDS IN THE UPPER AND LOWER EXTREMITITES. PATIENT STATED NO FURTHER NEEDS AT THIS TIME. PATIENT IS SITTING UPRIGHT AT THE EDGE OF THE BED AND EATING BREAKFAST. PATIENT GIVEN FRESH WARM BLANKETS. PATIENT CALL LIGHT AND PERSONAL BELONGINGS ARE WITHIN REACH.
[2023-10-26 09:48] VITALS: BP 161/84
--- NOTE | 2023-10-26 10:26 | NUR ---
PATIENT UP AND WALKING WITH PHYSICAL THERAPY.
[2023-10-26 14:01] VITALS: BP 159/90
--- NOTE | 2023-10-26 14:54 | NUR ---
PATIENT WORKING WITH RESPIRATORY THERAPY IN THE PATIENTS ROOM. PATIENT CALL LIGHT AND PERSONAL BELONGINGS ARE WITHIN REACH.
--- NOTE | 2023-10-26 15:52 | NUR ---
PATIENT SITTING UPRIGHT AT THE SIDE OF THE BED. LUNG SOUNDS WITH EXPIRATORY WHEEZING IN ALL LUNG RASHID BILATERALLY. LOWER LUNG LOBES BILATERALLY ARE DIMINISHED WELL. PATIENT STATED HAVING 3/10 PAIN WITH RESTING. PATIENT STATED THE PAIN SPIKES BETWEEN A 7-8 WITH MOVING, AMBULATING, AND COUGHING. OCCUPATIONAL THERAPY IS IN THE PATIENTS ROOM AT THIS TIME. WALKER AND PULSE OXIMETRY TAKEN INTO THE PATIENTS ROOM. PATIENT STATED NO FURTHER NEEDS AT THIS TIME. PATIENT CALL LIGHT AND PERSONAL BELONGINGS ARE WITHIN REACH.
[2023-10-26 18:26] VITALS: BP 135/73
[2023-10-26 20:10] VITALS: BP 143/68
--- NOTE | 2023-10-26 20:38 | NUR ---
Pt on 1LNC O2. denies sob, cpox on at bedside, desatts after returning from BR, and tachychardic. denies sob or CP. moist productive cough present, gets mucinex. requestsing nasal spray for nasal congestion, done. Lungs with insp loud crackles t/o on first assessment, after CDB and use of IS just dim at bases with faint crackles, clar otherwise. SL patent. calmer, less anxious todays. working with IS and acapella properly.
--- NOTE | 2023-10-26 22:28 | NUR ---
TEMP 99.8, C/O H/A, NIO FOR TYLENOL WRITTEN
--- NOTE | 2023-10-26 22:47 | NUR ---
TEMP 99.9 ORAL. O2 SATS PER CPOX WERE 84 O2 INCREAED TO 1.5LNC, WENT UP TO 89-91%, COOPERATIVE, HAD BEEN USING IS APPROPRIATELY, HAD SOME DIFFICULTY AT THIS TIME, CONTINUE TO TEACH APPROPRIATE USE OF IS. PT COOPERATIVE
--- NOTE | 2023-10-27 00:20 | NUR ---
resting, O2 titrated to 0.5LNC, per CPOX sat reading 92% , pulse 102, resp 15. awakes easily, no c/o discomfort. Tylenol effective temp 98.6 oral
[2023-10-27 03:30] VITALS: BP 134/67
[2023-10-27 04:06] VITALS: BP 138/68
[2023-10-27 05:47] LABS: HEMOGLOBIN 11.3 g/dL (12.0-18.0); MCH 32.2 (27-36); MCHC 33.3 g/dl (30-36); MCV 96.6 fl (81-99); PLATELET COUNT 498 K/uL (140-440); RBC 3.52 M/ul (4.3-5.7); RDW 13.4 (10.5-15.0)
[2023-10-27 05:59] LABS: ANION GAP 11.7 (7-21); BUN/CREATININE RATIO 12.72 (6.0-28.6); CALCIUM 8.7 mg/dL (8.5-10.1); CREATININE, SERUM 1.1 mg/dL (0.70-1.30); POTASSIUM 3.7 mmol/L (3.5-5.1)
--- NOTE | 2023-10-27 06:36 | NUR ---
RESTING. TEMP 98.9 ORAL. NO FURTHER C/O H/A, O2 0.5L/NC, SATS 92%, NO DISTRESS, CALM. HAS SLEPT MOST OF THIS SHIFT. CONTINEUS TO HAVE MOIST PRODUCTIVE COUGH. VOIDING QS, USES URINAL PLUS WALKS TO BR W SBA. HAS HAD FEVERS OFF AND ON THIS SHIFT, RECIEVED TYLENOL FOR FEVERS AND H/A, EFFECTIVE
[2023-10-27 06:41] LABS: BANDS, MANUAL DIFF 5; EOSINOPHILS, MANUAL DIFF 1; LYMPHOCYTES, MANUAL DIFF 9; MONOCYTES, MANUAL DIFF 7; NEUTROPHILS, MANUAL DIFF 78
--- NOTE | 2023-10-27 07:10 | NUR ---
REPORT RECEIVED FROM LICENSED CLINICAL PSYCHOLOGIST RN. PATIENT LAYING ON THEIR LEFT SIDE. RESPIRATIONS ARE EVEN AND UNLABORED. PATIENT CALL LIGHT AND PERSONAL BELONGINGS ARE WITHIN REACH.
[2023-10-27 10:01] VITALS: BP 138/70
--- NOTE | 2023-10-27 10:45 | NUR ---
PATIENT FULL ASSESSMENT COMPLETE AND DOCUMENTED IN THE CHART. PATIENT IS SITTING UPRIGHT IN THE BED AND TALKING WITH THE RN. PATIENT IS ON 0.5 L NASAL CANNULA. PATIENT NEW CPOX FINGER PROBE IN PLACE. CPOX WITH PLETH WAVE AND SATTING 94-97%. PATIENT LUNG SOUNDS ARE CLEAR BUT DIMINISED BILATERALLY IN ALL LUNG RASHID. PATIENT WITH PRODUCTIVE COUGH THAT HE IS ABLE TO GET OUT. PATIENT WITH NORMAL S1 AND S2. PATIENT BECOMES TACHYCARDIC WITH MOVEMENT AND AMBULATING. PATIENT BOWEL SOUNDS ARE ACTIVE IN ALL FOUR QUADRANTS. PATIENT STATED HAVING 3/10 PAIN IN THE LEFT SIDE OF THE RIBS BUT IS RESOLVED WITH REMAINING STILL. PATIENT STATED PAIN SPIKES IN THAT LEFT SIDE WHEN COUGHING TO 6-8/10. PATIENT EXPRESSED HAVING NO NUMBNESS AND TINGLING. RADIAL AND PEDAL PULSES ARE STRONG BILATERALLY. CAPILLARY REFILL IS LESS THAN 3 SECONDS IN THE UPPER AND LOWER EXTREMITITES BILATERALLY. PATIENT STATING NO FURTHER NEEDS AT THIS TIME. CALL LIGHT AND PERSONAL BELONGINGS ARE WITHIN REACH.
[2023-10-27 14:02] VITALS: BP 136/69
[2023-10-27 18:28] VITALS: BP 158/77
[2023-10-27 20:56] VITALS: BP 154/72
--- NOTE | 2023-10-27 21:16 | NUR ---
Pt on room air since 190, sats at this time laying down in bed 91%, P106, sitting up in bed for assessmens, sats 94-96%, P110, no change in resp. temp 99.7 oral, Tylenol 500mg [po given per c/o h/a and light fever. Room temp decreaed from 76 to 70, Had 4 extra blankets on, 2 removed. Alert and oriented, speech much clearer, very helpful and cooperative with vitals and assessments. Lungs mild faint crackles at bases initially, clear bilat after CDB. has coronet and IS at bedside which he uses frequently. Moist productive cough of thick white phlegm but not as frequent as before. finger CPOX on will leave on this shift to continues assessing O2 needs. had a bm today. voids using urinal small amounts of dark yellow urine. SL LFA patent. CBG 212, received 3 units SS Insulin plus scheduled Y-Gargline Insulin. turns and repositions self in bed
--- NOTE | 2023-10-28 00:07 | NUR ---
PT RESTING, NO DISTRESS, CPOX READS WERE 84%, O2 PLACED BACK ON 1LNC BACK TO 89-94% INMEDIATELY., AWAKES EASILY. O2 TITRATED BACK TO 0.5LNC. PT MOUTH BREATHS WHEN SLEEPING. P104, RESP16
--- NOTE | 2023-10-28 02:46 | NUR ---
rESTING, LAYING ON HIS BACK, HOB ELEVATED, ON 0.5L NC, SATS 92%, P99 NO RESPIRATORY DISTRESS
--- NOTE | 2023-10-28 04:00 | NUR ---
Pt on 0.5L NC. sleeping onhis back, mouth open, no distress, cpox readings 84%, O2 titrated to 1LNC. sats 93% P103. awakes easily. goes back to sleep
[2023-10-28 05:26] LABS: BASOPHILS 0.4 % (0-2); EOSINOPHILS 0.2 % (0-6); HEMATOCRIT 32.7 % (35.0-50.0); HEMOGLOBIN 11.1 g/dL (12.0-18.0); LYMPHOCYTES 6.1 % (24-44); MCH 32.3 (27-36); MCHC 33.9 g/dl (30-36); MCV 95.4 fl (81-99); MONOCYTES 9.2 % (0-12); NEUTROPHILS 84.1 % (39-80); PLATELET COUNT 574 K/uL (140-440); RBC 3.43 M/ul (4.3-5.7); RDW 13.3 (10.5-15.0)
[2023-10-28 05:39] LABS: ANION GAP 9.7 (7-21); BUN/CREATININE RATIO 9.7 (6.0-28.6); CALCIUM 8.6 mg/dL (8.5-10.1); CREATININE, SERUM 1.03 mg/dL (0.70-1.30); POTASSIUM 3.7 mmol/L (3.5-5.1)
[2023-10-28 06:00] VITALS: BP 153/70
--- NOTE | 2023-10-28 06:05 | NUR ---
CPOX ALRM GOING OFF, PT AWAKE, O2 TUBING OFF NARES. PT PICKING/WIPING NARES. SATS 80% ON ROOM AIR, DENIES SOB, PLACED BACK ON 4L NC. SATS WENT UP TO 96-98% INMEDIATELY. AFTER A FEW MINUTES, IT WAS SUSTAINED AT 96%. TITRATED BACK TO 1L, DESATTED AGAIN TO 84%, MOIST PRODUCTIVE COUGH PRESENT. LUNGS AFTER COUGH CLEAR, DIM AT BASES, NO WHEEZING NO CRACKLES. O2 ITRATED UP TO 2L, SATS 92% AT THIS TIME. WILL NOTIFY RT, MD AND INCOMING RN. PT AWAKE, ALERT AND ORIENTED, PLEASANT. C/O H/A AND LEFT LATERAL SIDE FROM COUGHING. WILL MEDICATED WITH tYLENOL. USED URINAL, VOIDING QS.
--- NOTE | 2023-10-28 06:20 | NUR ---
IPV TREATMENT DONE. NEB TX
--- NOTE | 2023-10-28 07:10 | NUR ---
REPORT RECEIVED FROM MOLYBDENUM STEAMER OPERATOR RN DIANA. PATIENT IS LYING ON THEIR LEFT SIDE. RESPIRATIONS ARE EVEN AND UNLABORED. CALL LIGHT AND PERSONAL BELONGINGS ARE WITHIN REACH.
--- NOTE | 2023-10-28 08:51 | NUR ---
PATIENT FULL ASSESSMENT COMPLETE AND DOCUMENTED IN THE CHART. 0900 MEDICATIONS ADMINISTERED PER THE EMAR. 0800 INSULIN HELD DUE TO THE BLOOD GLUCOSE BEING 140 AND BEING OUTSIDE THE SLIDING SCALE RANGE. PATIENT TALKING THROUGHOUT THE INTERACTION AND JUMPING BETWEEN THOUGHTS RAPIDLY. PATIENT LUNG SOUNDS ARE CLEAR BILATERALY BUT DIMINISHED IN THE BASES. PATIENT ON 1 L NASAL CANNULA AND ON CONTINUES PULSE OX. PATIENT HEART SOUNDS IRREGULAR. HR WAS 108. PATIENT STATED NO PAIN AT THIS TIME AND IS ONLY IN PAIN WITH COUGHING IN THE LEFT SIDE OF THE RIBS. PATIENT IV DRESSING IS CLEAN, DRY, AND INTACT. IV SITE FLUSHED WELL WITH 10 ML NORMAL SALINE. RADIAL AND PEDAL PULSES ARE STRONG AND CAPILLARY REFILL IS LESS THAN 3 SECONDS IN THE UPPER AND LOWER EXTREMITITES. PATIENT IS SITTING UPRIGHT IN BED AND EATING BREAKFAST. PATIENT STATED NO FURTHER NEEDS AT THIS TIME. CALL LIGHT AND PERSONAL BELONGINGS ARE WITHIN REACH.
[2023-10-28 09:49] VITALS: BP 118/69
--- NOTE | 2023-10-28 11:58 | NUR ---
PATIENT GIVEN 3 UNITS OF INSULIN IN THE RIGHT LOWER QUADRANT. PATIENT STATES HAVING PAIN AT 2/10 IN THE LEFT SIDE OF THE RIBS. PATIENT DID NOT REQUEST PAIN MEDICATION AT THIS TIME. PATIENT STATED NO FURTHER NEEDS AT THIS TIME. CALL LIGHT AND PERSONAL BELONGINGS ARE WITHIN REACH.
--- NOTE | 2023-10-28 13:10 | NUR ---
PATIENT WORKING WITH PT AT THIS TIME.
[2023-10-28 13:13] VITALS: BP 138/74
--- NOTE | 2023-10-28 13:50 | NUR ---
PATIENT FOCUSED ASSESSMENT COMPLETE. PATIENT STATED NO PAIN AT THIS TIME. LUNGS SOUNDS CLEAR IN THE RIGHT LUNG. UPPER LOBES OF THE LEFT LUNG ARE CLEAR AND THE LOWER LOBE IS DIMINISHED. PATIENT CALL LIGHT AND PERSONAL BELONGINGS ARE WITHIN REACH.
[2023-10-28 17:00] VITALS: BP 145/76
[2023-10-28 21:28] VITALS: BP 143/83
--- NOTE | 2023-10-28 21:51 | NUR ---
UP IN CHAIR, DEPENDENT LEGS. O2 1LNC, NO COUGH, CPOX IN PLACE 94-95% P103. BACK TO BED SBA, O2. TOLERATED WELL, COOPERATIV E WITH ASSESSMENTS. LUNGS DIM LEFT SIDE. AND BASES. USED URINAL, VOIDING LIGHT TEA COLORED URINE. HAD A BM THIS AM. TOLERATING FLUDIS WELL.
--- NOTE | 2023-10-29 00:45 | NUR ---
Pt resting, hob elevated, laying on his left side. O2 1LNC, cpox at bedside sats 95%, pulse 108. no distress.fresh fluids and urinal at bedside
--- NOTE | 2023-10-29 02:41 | NUR ---
resting, on 1LNC, no distress, cpox in place, temp still 99.0, awakes easily, denies need for tylenol for pain. CDB done
[2023-10-29 05:04] VITALS: BP 126/59
--- NOTE | 2023-10-29 05:10 | NUR ---
pt awakes easily, c/o mild left lateral rib pain from coughing. medicated with motrin at this time. cooperative with assessments. 1LNC, sats 92%.
--- NOTE | 2023-10-29 05:20 | NUR ---
AWAKES EASILY, C/O LEFT SIDED PAIN, WAS MEDICATED WITH MOTRIN, COOPERATIVE, O2 1lnc, CPOX ON SATS 92%, TURNS AND REPOSITIONS SELF IN BED. VOIDED SMALL AMONT DARK YELLOW URINE.
[2023-10-29 05:32] LABS: HEMATOCRIT 32.6 % (35.0-50.0); HEMOGLOBIN 10.8 g/dL (12.0-18.0); MCH 32.2 (27-36); MCHC 33.3 g/dl (30-36); MCV 96.7 fl (81-99); PLATELET COUNT 620 K/uL (140-440); RBC 3.37 M/ul (4.3-5.7); RDW 13.5 (10.5-15.0)
[2023-10-29 05:44] LABS: ALBUMIN 1.5 g/dL (3.4-5.0); ALBUMIN/GLOBULIN RATIO 0.26 (1.1-2.4); ANION GAP 10.8 (7-21); BILIRUBIN, TOTAL 0.2 ng/dL (0.2-1.0); BUN/CREATININE RATIO 11.42 (6.0-28.6); CALCIUM 8.7 mg/dL (8.5-10.1); CREATININE, SERUM 1.05 mg/dL (0.70-1.30); POTASSIUM 3.8 mmol/L (3.5-5.1); PROTEIN, TOTAL 7.3 g/dL (6.4-8.2)
[2023-10-29 06:00] LABS: BANDS, MANUAL DIFF 6; EOSINOPHILS, MANUAL DIFF 1; LYMPHOCYTES, MANUAL DIFF 9; MONOCYTES, MANUAL DIFF 10; NEUTROPHILS, MANUAL DIFF 74
--- NOTE | 2023-10-29 06:38 | NUR ---
PT RESTING, O2 1LNC, CPOX IN PLACE, NO FURTHER C/O PAIN
--- NOTE | 2023-10-29 07:49 | NUR ---
pt resting eyes closed at time of shift report. awake watching tv now, denies discomforts or needs of. sats 94% on 1 L 02. call light in hand. fresh h20 to bedside. 02 dc'd testing ability to maintain sats.
--- NOTE | 2023-10-29 08:10 | NUR ---
SBA TO THE CHAIR FOR MORNING MEAL. SATS REMAIN 91% ON RA. CALL LIGHT AND NEEDED ITEMS IN REACH
--- NOTE | 2023-10-29 09:45 | NUR ---
PT CONTINUES TO SAT 90-93% ON RA. SBA TO SHOWER PT DENIES NEED OF ASSIST. PERSONAL CARE ITEMS PROVIDED. PT SITTING ON SHOWER CHAIR CALL LIGHT IN REACH. REMINDED OF GRAB BARS X2 IN FRONT OF HIM AND ENCOURAGED HIM TO CALL FOR "ANY" NEED OF ASSIST OR WHEN HE FINISHES. PT STATES HE ANTICIPATES GOING HOME TODAY.
--- NOTE | 2023-10-29 10:08 | NUR ---
SHOWER WELL TOLERATED SATS AT 97% PT RETURNS TO RECLINER. USING TRUMPET EFFECTIVELY. NEEDED ITEMS IN REACH
[2023-10-29 10:33] VITALS: BP 113/72
--- NOTE | 2023-10-29 12:42 | NUR ---
PT HAS REMAINED UP IN THE CHAIR SINCE HIS SHOWER EARLIER TODAY. CONTINUES TO SAT MID 90'S ON RA. EATING NOON MEAL NOW, REPORTS DR CARRENO IN EARLIER AND HE WILL BE DC'D SOMETIME TODAY.
[2023-10-29] MEDS ORDERED: CEFPODOXIME PR200 MG PO (12:44)
[2023-10-29] MEDS ORDERED: ZINC-1566 MG PO (13:07)
[2023-10-29] MEDS ORDERED: TYLENOL EXTRA500 MG PO (13:07)
[2023-10-29] MEDS ORDERED: MAGOX 400400 MG PO (13:07)
[2023-10-29] MEDS ORDERED: VITAMIN B COMP1 EAC1 PO (13:08)
[2023-10-29] MEDS ORDERED: TURMERIC500 M2 PO (13:08)
[2023-10-29] MEDS ORDERED: CINNAMON500 MG PO (13:08)
[2023-10-29] MEDS ORDERED: VITAMIN E268 M1 PO (13:08)
[2023-10-29] MEDS ORDERED: VITAMIN D325 MCG PO (13:09)
--- NOTE | 2023-10-29 13:33 | NUR ---
DC INSTRUCTIONS PROVIDED. REVIEWED HOME MED REGIMEN AFTER PHARMACY PROVIDES INSTRUCTION. PT HAS NO QUESTIONS AND IS ABLE TO VERBALIZE WHEN TO TAKE WHAT MEDICATIONS.
--- NOTE | 2023-10-29 13:47 | NUR ---
PT DRESSES INDEPANTLY FOR DC. WAITING FOR HIS RIDE NOW.
[2023-10-29 14:01] VITALS: BP 136/70
== END 2023-10-29 14:05 | disposition home or self-care (01) | DRG 193 ==
LOC: ED 05:42 → MS 05:43
PROVIDERS: Family Medicine; Internal Medicine; ADMIT Family Medicine; ATTEND Family Medicine
DX: J18.9 Pneumonia, unspecified organism (principal); J96.01 Acute respiratory failure with hypoxia; F20.0 Paranoid schizophrenia; N17.9 Acute kidney failure, unspecified; E87.1 Hypo-osmolality and hyponatremia; E03.9 Hypothyroidism, unspecified; E11.65 Type 2 diabetes mellitus with hyperglycemia; E11.22 Type 2 diabetes mellitus with diabetic chronic kidney disease; I12.9 Hypertensive chronic kidney disease with stage 1 through stage 4 chronic kidney disease, or unspecified chronic kidney disease; N18.2 Chronic kidney disease, stage 2 (mild); E78.00 Pure hypercholesterolemia, unspecified; F17.210 Nicotine dependence, cigarettes, uncomplicated; Z79.891 Long term (current) use of opiate analgesic; Z79.899 Other long term (current) drug therapy; Z79.890 Hormone replacement therapy; Z79.84 Long term (current) use of oral hypoglycemic drugs; Z11.52 Encounter for screening for COVID-19
CPT/HCPCS: 36415; 71045; 71101; 71260; 80048; 80053; 80164; 80307; 81001; 83605; 84443; 84484; 85025; 85379; 87040; 87077; 87186; 87502; 93005; 93010; 94640; 94667; 94668; 94760; 94761; 94762; 96361; 96372; 96375; 97163; 97165; 97530; 99285-25; 99406; A9270; G0378; G0480; J0456; J0696; J1650; J1815; J1885; J7121; Q9967; U0002

== ENCOUNTER 2023-11-19 11:42 | Inpatient (IN) | payer MEDICARE, OTHER ==
[~2023-11-19] VITALS: Ht 177.8 cm; Wt 61.0 kg
--- NOTE | ~2023-11-19 | EKG ---
[facility] [address] [facility] [address] [place], [place] [address] Draft EK completed, results pending confirmation PATIENT NAME: ELALDAIRCHAD Electrocardiogram DATE OF : 65 PHYSICIAN: PRELIMINARY REPORT #: [id number] REPORT IS CONFIDENTIAL AND NOT TO BE RELEASED WITHOUT AUTHORIZATION
[~2023-11-19 11:42] MED LIST changes: +CEFPODOXIME PR200 MG PO; +CINNAMON500 MG PO; +DEEP SEA44 ML NAS; +MAGOX 400400 MG PO; +MELATONIN10 M2 PO; +MUCINEX600 MG PO; +TURMERIC500 M2 PO; +TYLENOL EXTRA500 MG PO; +VITAMIN B COMP1 EAC1 PO; +VITAMIN D325 MCG PO; +VITAMIN E268 M1 PO; +ZINC-1566 MG PO
--- OUTSIDE RECORDS SUMMARY | 2023-11-19 11:50 | XMS ---
PreManage Notification: CHAD CACERES Security Forest[employer] Events No recent Security Events currently on file CRITERIA MET - [facility] - 2 Visits in 30 Days CARE PROVIDERS -, [place]- Dentist: Manager Field Service [facility] PHONE: [phone] Care Guidelines exist for the following facilities: [facility] [place] ( 03/22/2020 ) Carlos VISIT COUNT (12 MO.) [address] [place] [address] TOTAL 2 NOTE: Visits indicate total known visits. ED/UCC VISIT TRACKING (12 MO.) 11/19/2023 11:42 [facility] TYPE: Emergency COMPLAINT: - CHEST PAIN 10/21/2023 05:42 [facility] TYPE: Emergency COMPLAINT: - L RIB PAIN INPATIENT VISIT TRACKING (12 MO.) 10/22/2023 09:16 [facility] TYPE: Medical Surgical COMPLAINT: - ACUTE HYPOXIC RESPIRATORY FAILURE, CAP DIAGNOSES: - Acute kidney failure, unspecified - Acute kidney failure, unspecified - Acute respiratory failure with hypoxia - Acute respiratory failure with hypoxia - Cellulitis of right lower limb - Chronic kidney disease, stage 2 (mild) - Chronic kidney disease, stage 2 (mild) - Encounter for screening for COVID-19 - Encounter for screening for COVID-19 - Hormone replacement therapy - Hormone replacement therapy - Hyperlipidemia, unspecified - Hypertensive chronic kidney disease with stage 1 through stage 4 chronic kidney disease, or unspecified chronic kidney disease - Hypertensive chronic kidney disease with stage 1 through stage 4 chronic kidney disease, or unspecified chronic kidney disease - Hypo-osmolality and hyponatremia - Hypo-osmolality and hyponatremia - Hypothyroidism, unspecified - Hypothyroidism, unspecified - residential (current) use of opiate analgesic - 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 - termite renewal inspector (current) use of oral hypoglycemic drugs - termite renewal inspector (current) use of oral hypoglycemic drugs - Nicotine dependence, cigarettes, uncomplicated - Nicotine dependence, cigarettes, uncomplicated - Other retirement (current) drug therapy - Other emt intermediate (current) drug therapy - Paranoid schizophrenia - Paranoid schizophrenia - Pneumonia, unspecified organism - Pure hypercholesterolemia, unspecified - Pure hypercholesterolemia, unspecified - Sepsis, unspecified organism - Sepsis, unspecified organism - Severe sepsis without septic shock - Severe sepsis without septic shock - Type 2 diabetes mellitus with diabetic chronic kidney disease - Type 2 diabetes mellitus with diabetic chronic kidney disease - Type 2 diabetes mellitus with hyperglycemia - Type 2 diabetes mellitus with hyperglycemia - Urinary tract infection, site not specified [email or web address]
[2023-11-19 12:01] LABS: BASOPHILS 0.4 % (0-2); EOSINOPHILS 0.4 % (0-6); HEMATOCRIT 36.4 % (35.0-50.0); HEMOGLOBIN 12.1 g/dL (12.0-18.0); LYMPHOCYTES 9.5 % (24-44); MCH 30.9 (27-36); MCHC 33.3 g/dl (30-36); MCV 92.6 fl (81-99); MONOCYTES 6.8 % (0-12); NEUTROPHILS 82.9 % (39-80); PLATELET COUNT 528 K/uL (140-440); RBC 3.93 M/ul (4.3-5.7); RDW 13.4 (10.5-15.0)
[2023-11-19 12:18] LABS: ALBUMIN 2.8 g/dL (3.4-5.0); ALBUMIN/GLOBULIN RATIO 0.44 (1.1-2.4); ANION GAP 9.7 (7-21); BILIRUBIN, TOTAL 0.3 ng/dL (0.2-1.0); BUN/CREATININE RATIO 15.55 (6.0-28.6); CALCIUM 9.3 mg/dL (8.5-10.1); CREATININE, SERUM 2.25 mg/dL (0.70-1.30); MAGNESIUM 2.2 mg/dL (1.8-2.4); POTASSIUM 3.7 mmol/L (3.5-5.1); PROTEIN, TOTAL 9.2 g/dL (6.4-8.2)
[2023-11-19 15:11] VITALS: BP 137/85
--- NOTE | 2023-11-19 16:00 | NUR ---
PC TO DR. TRAYLOR'S OFFICE. DR. TRAYLOR CALLED THE FLOOR IMMEDIATELY TO RETURN MY CALL. REQUESTED ANTIEMETIC FOR THIS PT D/T PT C/O N/V. NGT IS SUCTIONING APPROPRIATELY AND PT HAS HAD (INCLUDING IN THE ED) OVER 2500ML GREEN FLUID OUT OF NGT. HE HAS HAD 3 EPISODES OF VOMITING SINCE ARRIVING TO THE ROOM SHORTLY BEFORE [address] TRAYLOR GAVE A TELEPHONE ORDER FOR INAPSINE 0.625MG IV Q6P. [facility]
--- NOTE | 2023-11-19 16:45 | NUR ---
Pt is sitting in bed with HOB elevated, reports nausea and has been vomiting. NS bolus started after IV in RAC was flushed with 10ml NS, good return and flushes well. Inapsine administered slow IVP per emar. Pt denies any needs at this time. Call light in reach.
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
[2023-11-19 17:22] VITALS: BP 159/86
--- NOTE | 2023-11-19 19:43 | NUR ---
pt awakens easily. on room air. R NGT patent to LIWS, draining green colored drainage, no c/o pain. IVF infusing RAC, SL RH patent. both field starts IV
--- NOTE | 2023-11-19 20:06 | NUR ---
DR TRAYLOR NOTIFIED OF PTS GLUCOSE ON ADMIT LABS AND OF PT HAVING A DX OF DM2. NEW ORDERS TO START MILD SS REGULAR INSULIN WITH ACCUCHECKS Q6H DUE TO NPO STATUS
[2023-11-19 21:00] VITALS: BP 126/71
[2023-11-20 00:38] VITALS: BP 116/73
--- NOTE | 2023-11-20 00:51 | NUR ---
vital signs as per MEWS. pulse continues to be tachychardic , denies CP or SOB. RNGT patent, flushed. Pt was sleeping supine, head down, started gagging and coughing once repositioned to correct position for NGT. Instructed to keep hob elevated at 30-45o to prevent accidental aspiration of gastrict contents. stated understanding. NGT R nare, denies c/o pain, abd slight distention as before. IVF infusing. NPO, does own oral care, voided medium colored urine using urinal. turns and repositions self in bed
--- NOTE | 2023-11-20 03:18 | NUR ---
Coop with NPO status, c/o needing to have a BM. Up to BSC 1PA. R nare NGT to LIWS draining green thick discharge, tolerating it well. IVF infusing no problems, turns and repositions self in bed. aware of having to keep HOB elevated 30-45o due to NGT safety aspiration precautions. hyperverbal but redirectable
[2023-11-20 05:13] VITALS: BP 127/73
--- NOTE | 2023-11-20 05:35 | NUR ---
Pt has R nare NGT to LIWS, draining large amounts of thick green drainage. had a few ice chips earlier on shift. NGT flushed as per policy. tolerating NPO. does own oral care. has voided QS uses urinal. Up to BSC x1 no bm. back to bed with 1PSBA. IVF infusing, no c/o adverse reaction to abx. cbg Q6H 362 and 243. received SS Insulin Reglan as per orders. hyperverbal but redirectable. pleasant and cooperative. was Instructed on need to stay in a like sitting position in bed to prevent aspiration due to NGT, stated understandin. IVF site RAC and field start RH. was on Q$H vitals due to MEWS. Pt has been tachy since admission, more relaxed now and MEWS scores are back to normal. no c/o pain
[2023-11-20 05:50] LABS: BASOPHILS 0.5 % (0-2); EOSINOPHILS 0.2 % (0-6); HEMATOCRIT 31.9 % (35.0-50.0); HEMOGLOBIN 10.8 g/dL (12.0-18.0); LYMPHOCYTES 9.5 % (24-44); MCH 30.9 (27-36); MCHC 33.8 g/dl (30-36); MCV 91.5 fl (81-99); NEUTROPHILS 81.8 % (39-80); PLATELET COUNT 407 K/uL (140-440); RBC 3.49 M/ul (4.3-5.7); RDW 13.4 (10.5-15.0)
[2023-11-20 06:06] LABS: ALBUMIN 2.1 g/dL (3.4-5.0); ALBUMIN/GLOBULIN RATIO 0.38 (1.1-2.4); ANION GAP 9.5 (7-21); BILIRUBIN, TOTAL 0.2 ng/dL (0.2-1.0); BUN/CREATININE RATIO 22.37 (6.0-28.6); CALCIUM 8.3 mg/dL (8.5-10.1); CREATININE, SERUM 1.43 mg/dL (0.70-1.30); POTASSIUM 3.5 mmol/L (3.5-5.1); PROTEIN, TOTAL 7.7 g/dL (6.4-8.2)
--- NOTE | 2023-11-20 07:00 | NUR ---
REPORT RECEIVED FROM PLASTERER STUCCO RN DIANA. PATIENT IS RESTING WITH EYES CLOSED AND RESPIRATIONS ARE EVEN AND UNLABORED. PATIENT IS LYING IN THE BED. PATIENT CALL LIGHT AND PERSONAL BELONGINGS ARE WITHIN REACH.
--- NOTE | 2023-11-20 08:31 | NUR ---
INSULIN AND HEPARIN ADMINISTERED PER THE EMAR. PATIENT GIVEN TWO UNITS OF INSULIN. PATIENT TOLERATED SUB Q INJECTIONS WELL. PATIENT FULL ASSESSMENT COMPLETE AND DOCUMENTED IN THE CHART. PATIENT STATED NO PAIN AT THIS TIME BUT DOES HAVE DISCOMFORT IN THE RIGHT NOSTRIL FROM THE NG TUB. PATIENT LUNG SOUNDS ARE CLEAR BILATERALLY IN THE UPPER LOBES AND DIMINISHED IN THE BASES BILATERALLY. PATIENT HR IS REGULAR BUT TACHYCARDIC AT THIS TIME. RADIAL PULSES ARE STRONG BILATERALLY. NO EDEMA NOTED IN THE LOWER EXTREMITIES. NORMAL STRENGHT IN THE UPPER AND LOWER EXTREMITIES BILATERALLY. BOWEL TONES ARE ACTIVE IN ALL FOUR QUADRANTS. PATIENT STATED SOME TENDERNESS IN THE LUQ. IV SITES FLUSH WELL WITH 10 ML NORMAL SALINE. PATIENT TOLERATED WELL WITH NO PAIN. PATIENT SHEET AND BLANKET CHANGED DUE TO BEING SOILED. PATIENT NG TUBE INTACT IN THE RIGHT NOSTRIL WITH SUCTION. NG DRAINAGE DARK GREEN. PATIENT STATED NO FURTHER NEEDS AT THIS TIME. CALL LIGHT AND PERSONAL BELONGINGS ARE WITHIN REACH.
--- NOTE | 2023-11-20 08:45 | NUR ---
PATIENTS BEDDING AND BRIEF CHANGED. PATIENT MARIJUANA IN THE LOCK BOX AT THIS TIME. PATIENT HANDLED THE CONVERSATION WELL AND EXPRESSED UNDERSTANDING. PATIENT IS NOW SITTING UPRIGHT IN THE RECLINER. PATIENT STATED NO FURTHER NEEDS AT THIS TIME. CALL LIGHT AND PERSONAL BELONGINGS ARE WITHIN REACH.
--- NOTE | 2023-11-20 09:01 | NUR ---
PRIMARY RN ASKED THIS CLINICAL TRIAL COORDINATOR FOR ASSISTANCE WITH PT. PT HAD ONE EPISODE OF BOWEL MOVEMENT INCONTINENCE. PT ASSISTED TO BEDSIDE COMMODE. KUSHAL CARE PROVIDED AND NEW BRIEF AND GOWN APPLIED. FULL LINEN CHANGE PROVIDED. PT ASSISTED UP TO CHAIR. BLANKETS FROM WARMER PROVIDED. CALL LIGHT WITHIN REACH.
[2023-11-20 09:14] VITALS: BP 135/75
--- NOTE | 2023-11-20 09:28 | NUR ---
UR NOTE MEETS [facility] INPT CRITERIA
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
--- NOTE | 2023-11-20 10:59 | NUR ---
Call light answered. Pt stated, "I am having some lower back pain." Pt complains of sitting in the chair. WEEKEND CAREGIVER assisted pt to bed. PT stated, "I just want to lay down and calm down." Lights dimmed and curtain closed so pt can rest. Call light within reach.
--- NOTE | 2023-11-20 12:10 | NUR ---
PATIENT IS SITTING UPRIGHT IN BED WITH EYES CLOSED. RESPIRATIONS ARE EVEN AND UNLABORED. CALL LIGHT AND PERSONAL BELONGINGS ARE WITHIN REACH.
[2023-11-20 13:44] VITALS: BP 140/75
--- NOTE | 2023-11-20 14:30 | NUR ---
ROUNDS. PT RECEIVING NURSIN CARE. UNABLE TO VISIT. PROVIDED PRAYER.
[2023-11-20 17:14] VITALS: BP 128/77
--- NOTE | 2023-11-20 18:46 | NUR ---
PATIENT RESTING WITH EYES CLOSED AND RESPIRATIONS ARE EVEN AND UNLABORED. LR IS RUNNING AT 100 ML/HR. PATIENT CALL LIGHT AND PERSONAL BELONGINGS ARE WTIHIN REACH.
--- NOTE | 2023-11-20 18:49 | HP ---
[facility] [address] [place], [place] [address] Signed ADMISSION DATE: 11/19/2023 REASON FOR ADMISSION: Small bowel obstruction. HISTORY OF PRESENT ILLNESS: This 58-year-old white man was recently discharged from the hospital after being on the hospitalist service for left lower lobe pneumonia and COPD. He was treated with antibiotics. He has underlying schizoaffective disorder, hypertension, diabetes, stage 2 kidney disease, and hypercholesterolemia. He was discharged to home, doing reasonably well, but presented back to the hospital after 24 hours of progressive nausea and vomiting. Evaluation by Dr. Boothe confirmed abdominal distention and a CT scan was performed, which showed massive dilation of the stomach and dilated small-bowel loops highly consistent with acute small-bowel obstruction. The patient had a complaint generally of constipation. Notably, the patient has had methamphetamine use 2-3 days ago following discharge. He also took Equate brand laxative of some sort last night, which worsened his symptoms. The patient arrived by ambulance, where he had complaints of nausea and six episodes of vomiting. Nasogastric tube was placed decompressing the stomach quite a bit and he is now improved in his overall complaints. A chest x-ray was performed confirming good nasogastric tube placement. He has some atelectasis of the left lower lobe, which would be expected considering his recent hospitalization. I have reviewed a CT scan and chest x-ray. His laboratory studies at admission show white count 12.4, hematocrit 36.4, platelets 528,000. A chem profile showing a sodium of 130, chloride 88, creatinine 2.25, glucose 460, lipase elevated at 235. A bolus of crystalloid solution lactated Ringer's specifically was ordered and has been administered and his maintenance IV is pending. MEDICATIONS: Medicines at the time of admission include Tylenol, vitamin D3, cinnamon bark, divalproex, doxepin, magnesium oxide, melatonin, tumeric root extract, vitamin B complex, vitamin E, and ziprasidone. ALLERGIES: He has allergies to pork-derived medicines. REVIEW OF SYSTEMS: Electronically Signed By: ERICA TRAYLOR MD 11/20/23 1849 PATIENT NAME: CHAD CACERES HISTORY AND PHYSICAL DATE OF : 65 REPORT #: [id number] PHYSICIAN: ERICA TRAYLOR MD PCP: PERRY LEÓN REPORT IS CONFIDENTIAL AND NOT TO BE RELEASED WITHOUT AUTHORIZATION [facility] [address] [place] [id number] Signed He denies any shortness of breath or chest pain at this time. He denies any cough. He has no abdominal pain currently. PHYSICAL EXAMINATION: GENERAL: He is a thin white man, who looks to be in no distress. VITAL SIGNS: Temperature 98.8, pulse 115, blood pressure 159/86, O2 saturation 95% on room air. HEENT: Trachea is midline. CHEST: Shows no evidence of cough or respiratory distress. HEART: Regular. ABDOMEN: Now flat and soft and there is no palpable mass and no tenderness. Examination also confirms a reducible left inguinal hernia with no focal tenderness. EXTREMITIES: Show no clubbing, cyanosis, or edema. LABORATORY DATA: Lab studies as previously noted include white count of 12.4 and a creatinine of 2.25. The interpretation of the CT scan confirmed small-bowel obstruction with abrupt transition point and decompressed small-bowel in the right lower abdomen as well as dominant and predominant gastric distention. There is some free fluid in the pelvis, small left inguinal hernia containing fat and some ascites fluid. There is left basilar lingular atelectasis and/or fibrosis. ASSESSMENT: The patient quite clearly has a rather significant small-bowel obstruction based on CT scan, which is markedly improved with nasogastric tube decompression. Source of this hernia would be uncertain. Likely would be adhesion related. There is certainly no sign of incarcerated hernia to account for it. He will be given IV fluids, made n.p.o. and nasogastric tube decompression and an abdominal x-ray performed tomorrow morning. If there is still evidence of bowel obstruction, he may benefit from a small-bowel follow-through to better characterize the level of obstruction. Discussed all this with him in detail. The patient does take a psychiatric medications (divalproex, ziprasidone, and antihypertensive medication including doxepin). These will be re-initiated as soon as possible. For sleep tonight, he will obtain the Benadryl despite its potential for central effects. Erica Traylor MD Electronically Signed By: ERICA TRAYLOR MD 11/20/23 1849 PATIENT NAME: CHAD CACERES HISTORY AND PHYSICAL DATE OF : 65 REPORT #: [id number] PHYSICIAN: ERICA TRAYLOR MD PCP: PERRY LEÓN REPORT IS CONFIDENTIAL AND NOT TO BE RELEASED WITHOUT AUTHORIZATION [address] [address] Signed /[facility] /[id number] cc: MD Erica Kaur MD Copies: ~ Electronically Signed By: ERICA TRAYLOR MD 11/20/23 1849 PATIENT NAME: CHAD CACERES HISTORY AND PHYSICAL DATE OF : 65 REPORT #: [id number] PHYSICIAN: ERICA TRAYLOR MD PCP: PERRY LEÓN REPORT IS CONFIDENTIAL AND NOT TO BE RELEASED WITHOUT AUTHORIZATION
--- NOTE | 2023-11-20 18:57 | NUR ---
NG TUBE REMOVED. NG TUBE INTACT AND PATIENT TOLERATED WELL. PATIENT GIVEN A FRESH CUP OF ICE WATER. PATIENT STATED NO FURTHER NEEDS AT THIS TIME. CALL LIGHT AND PERSONAL BELONGINGS ARE WITHIN REACH. PATIENT WITH A TOTAL OF 400 ML GREEN DRAINAGE FROM THE NG TUBE THROUGHOUT MY SHIFT.
[2023-11-20 21:05] VITALS: BP 149/85
--- NOTE | 2023-11-20 21:27 | NUR ---
PATIENT CALLED STATING "IM DONE". PATIENT USED THE BEDSIDE COMMODE HAD BROWN BM LOOSE MIXED WITH URINE APPROXIMATELY 500 T0 600ML. PATIENT CLEANED UP HIMSELF. FRESH PULL UPS PROVIDED. PATIENT IS BACK IN BED. DENIES FURTHER NEEDS AT THIS TIME. CALL LIGHT AND SIDE TABLE WITHIN REACH.
--- NOTE | 2023-11-20 21:44 | NUR ---
IV PUMP ALARMING, DISTAL OCCLUSION NOTED. WASH CLOTH FOLDED AND PLACED IN RIGHT AC AREA W/ IV SITE, SECURED WITH COBAN. pt EDUCATED TO USE CALL LIGHT IF PUMP ALARMS AGAIN-pt VERBALIZED UNDERSTANDING. IV SITE WNL, IV FLUIDS CONTINUE TO INFUSE WNL. CALL LIGHT IN REACH AND PRIMARY RN ASHLIE AWARE.
[2023-11-21 05:04] VITALS: BP 137/76
--- NOTE | 2023-11-21 06:58 | NUR ---
REPORT RECEIVED FROM ENGINEER SYSTEMS JUAN DAILEY. PATIENT IS RESTING WITH EYES CLOSED AND RESPIRATIONS ARE EVEN AND UNLABORED. PATIENT IS LYING ON THEIR LEFT SIDE. LR RUNNING AT 100 ML/HOUR. PATIENT CALL LIGHT AND PERSONAL BELONGINGS ARE WITHIN REACH.
[2023-11-21 10:22] VITALS: BP 118/70
--- NOTE | 2023-11-21 11:15 | NUR ---
PATIENT FULL ASSESSMENT COMPLETE AND DOCUMENTED IN THE CHART. PATIENT GOT A SHOWER AND ORAL CARE COMPLETE. PATIENT IS NOW SITTING UPRIGHT IN THE RECLINER AND WAITING TO HAVE LUNCH. PATIENT ALEVYN PLACED RIGHT ABOVE THE COCCYX DUE TO A REDENNED AREA. WINDOW PLACED ON THE HAND FOR A BLISTER. PATIENT LUNG SOUNDS ARE CLEAR BUT DIMINISHED IN THE BASES BILATERALLY. HEARTS SOUNDS WITH NORMAL S1 AND S2 BUT TACHYCARDIC AFTER MOVING BACK TO THE BED. BOWEL TONES ARE ACTIVE IN ALL FOUR QUADRANTS. PATIENT STATED NO PAIN AT THIS TIME BUT A LITTLE DISCOMFORT. RADIAL PULSES ARE STRONG BILATERALLY. IV SITES ARE CLEAN, DRY, AND INTACT. IV SITES SALINE LOCKED AFTER SHOWER. PATIENT SPOKE WITH DOCTOR KYMBERLY IN REGARDS TO DISCHARGE PLAN. PATIENT STATED NO FURTHER NEEDS AT THIS TIME. CALL LIGHT AND PERSONAL BELONGINGS ARE WITHIN REACH.
[2023-11-21 12:12] LABS: ALBUMIN 2.3 g/dL (3.4-5.0); ALBUMIN/GLOBULIN RATIO 0.4 (1.1-2.4); ANION GAP 13.3 (7-21); BILIRUBIN, TOTAL 0.2 ng/dL (0.2-1.0); BUN/CREATININE RATIO 14.17 (6.0-28.6); CALCIUM 8.7 mg/dL (8.5-10.1); CREATININE, SERUM 1.34 mg/dL (0.70-1.30); POTASSIUM 4.3 mmol/L (3.5-5.1)
[2023-11-21 13:39] VITALS: BP 153/85
--- NOTE | 2023-11-24 10:03 | DS ---
[facility] [address] [place], [place] [address] Signed ADMISSION DATE: 11/19/2023 DISCHARGE DATE: 11/21/2023 REASON FOR ADMISSION: Small bowel obstruction. HISTORY OF PRESENT ILLNESS: This 58-year-old white male was recently discharged from the hospital after being in the hospitalist service for left lower lobe pneumonia and COPD. He was treated with antibiotics. He has underlying schizoaffective disorder, hypertension, diabetes, stage 2 kidney disease, and hypercholesterolemia. He lives with his two brothers. He was discharged home, doing reasonably better, presented back to the emergency room after 24 hours of progressive nausea and vomiting. Evaluation in the emergency room by Dr. Boothe confirmed abdominal distention and CT scan was performed showing massive dilation of the stomach and dilated small bowel loops consistent with small bowel obstruction. He generally has had a complaint of constipation. The patient has used methamphetamine for 2 to 3 days following his discharge. He also took a laxative of some sort that he obtained at [facility], which worsened his symptoms. He arrived by ambulance and had complaints of nausea and six episodes of vomiting. He is admitted for further evaluation and care. PERTINENT PHYSICAL EXAMINATION: GENERAL: Showed a thin white man who did not look systemically toxic. NECK: His trachea is midline. CHEST: Showed no wheeze or rhonchi. HEART: Regular without murmur. ABDOMEN: Mildly distended and not focally tender. Nasogastric tube was decompressing the stomach and a chest x-ray confirmed nasogastric tube with good placement. LABORATORY STUDIES: Showed a white count of 12.4, hematocrit 36.4, platelets 528,000. Chem profile, sodium of 130, chloride of 88, creatinine of 2.25, glucose of 416, lipase elevated at 235. HOSPITAL COURSE: With nasogastric tube decompression, IV fluids and bowel rest, he had prompt resumption of some flatus. His abdomen was nontender and nondistended. He was at presentation and was placed on a sliding scale of insulin. His lipase decreased to 125 the following day. He had no clinical evidence of pancreatitis or other hepatobiliary problem. Review of the CT scan confirmed that the gallbladder was not particularly abnormal in appearance, though it was somewhat obscured by very dilated stomach and duodenum. Electronically Signed By: ERICA TRAYLOR MD 11/24/23 1003 PATIENT NAME: CHAD CACERES DISCHARGE SUMMARY DATE OF : 65 REPORT #: [id number] PHYSICIAN: ERICA TRAYLOR MD PCP: PERRY LEÓN-Hao REPORT IS CONFIDENTIAL AND NOT TO BE RELEASED WITHOUT AUTHORIZATION [facility] [address] [place], [place] [address] Signed On November 20, 2023, he underwent small-bowel follow-through. This confirmed contrast passage to the colon without sign of bowel obstruction. His nasogastric tube was removed and he was given liquids which he tolerated and is anticipated to be given a regular diet which he likely will tolerate as well. If he does tolerate his regular diet, he will be discharged to home. His lab studies the day before discharge showed a normal white count of 9.2, hematocrit of 31.9 down from 36.4 at admission. Platelets are 407,000. His Chem profile is essentially normal creatinine decreased to 1.43 with rehydration, glucose down to 198. Liver enzymes are normal or low, albumin low at 2.1, globulin slightly elevated at 5.6, previously 6.4. Lipase was 125. It is anticipated that he will get a [facility] serum protein electrophoresis study before discharge and a repeat Chem profile including lipase. FOLLOWUP PLAN: He will return to the ongoing care of AMANDA Melgar as well as LEVI Brunner who has seen him in the recent past. He already has appointment scheduled in followup from his recent episode of left lower lobe pneumonia. DISCHARGE DIAGNOSES: 1. Acute small bowel obstruction with spontaneous resolution. 2. Hyperlipasemia likely related to dehydration. 3. Dehydration and acute kidney injury with improvement with hydration. 4. Recent left lower lobe pneumonia and COPD. 5. Schizoaffective disorder (treated). 6. Seizure disorder (takes divalproex). DISCHARGE MEDICATIONS: Will include: 1. Divalproex 500 mg tablets two tablets p.o. at bedtime. 2. Doxepin 50 mg p.o. daily at bedtime. 3. Ziprasidone 80 mg two tablets p.o. at bedtime. 4. Melatonin 10 mg p.o. at bedtime as needed for sleep. 5. Tylenol Extra Strength 1000 mg p.o. at bedtime p.r.n. pain. 6. Zinc sulfate 66 mg p.o. at bedtime. 7. Magnesium oxide 400 mg p.o. at bedtime. 8. Vitamin E 400 unit capsule p.o. at bedtime. 9. Turmeric root extract 500 mg p.o. at bedtime. 10. Cinnamon bark 500 mg p.o. at bedtime. 11. Vitamin B complex one tablet p.o. at bedtime. 12. Vitamin D3 25 mcg 1000 units p.o. at bedtime. Electronically Signed By: ERICA TRAYLOR MD 11/24/23 1003 PATIENT NAME: MORRISCHAD LOGAN DISCHARGE SUMMARY DATE OF : 65 REPORT #: [id number] PHYSICIAN: ERICA TRAYLOR MD PCP: PERRY LEÓN REPORT IS CONFIDENTIAL AND NOT TO BE RELEASED WITHOUT AUTHORIZATION [address] [place] [address] Signed MD HAYDE Buitrago/JEWELL /[id number] cc: AMANDA Melgar Dr., PA-C Dr. Hilborn Copies: CELE MEYERS PA-C ~ Electronically Signed By: ERICA TRAYLOR MD 11/24/23 1003 PATIENT NAME: CHAD CACERES DISCHARGE SUMMARY DATE OF : 65 REPORT #: [id number] PHYSICIAN: ERICA TRAYLOR MD PCP: PERRY LEÓN REPORT IS CONFIDENTIAL AND NOT TO BE RELEASED WITHOUT AUTHORIZATION
[2023-11-24 10:41] LABS: IMMUNOGLOBULIN A 516 mg/dL (68-408); IMMUNOGLOBULIN G 1985 mg/dL (768-1632); IMMUNOGLOBULIN M 86 mg/dL (35-263)
[2023-11-24 11:01] LABS: ALBUMIN 2.89 g/dL (3.75-5.01); ALPHA 1 GLOBULIN 0.44 g/dL (0.19-0.46); ALPHA 2 GLOBULIN 1.07 g/dL (0.48-1.05); GAMMA 1.79 g/dL (0.62-1.51); IMMUNOFIXATION REFLEX IFE Done (()); TOTAL PROTEIN,SERUM 7.4 g/dL (6.3-8.2)
== END 2023-11-21 14:15 | disposition home or self-care (01) | DRG 389 ==
LOC: ED 11:42 → MS 13:51
PROVIDERS: Emergency Medicine; ADMIT Surgery; ATTEND Surgery
PROC: 0D9670Z Drainage of Stomach with Drainage Device, Via Natural or Artificial Opening (ICD-10-PCS; principal; 2023-11-19)
DX: K56.609 Unspecified intestinal obstruction, unspecified as to partial versus complete obstruction (principal); N17.9 Acute kidney failure, unspecified; E86.0 Dehydration; G40.909 Epilepsy, unspecified, not intractable, without status epilepticus; F25.9 Schizoaffective disorder, unspecified; E11.22 Type 2 diabetes mellitus with diabetic chronic kidney disease; I12.9 Hypertensive chronic kidney disease with stage 1 through stage 4 chronic kidney disease, or unspecified chronic kidney disease; N18.2 Chronic kidney disease, stage 2 (mild); E78.00 Pure hypercholesterolemia, unspecified; F17.210 Nicotine dependence, cigarettes, uncomplicated; K59.00 Constipation, unspecified; F15.90 Other stimulant use, unspecified, uncomplicated; F12.90 Cannabis use, unspecified, uncomplicated; Z79.899 Other long term (current) drug therapy; Z88.8 Allergy status to other drugs, medicaments and biological substances
CPT/HCPCS: 36415; 43752; 71045; 74018; 74176; 74250; 80053; 83690; 83735; 84484; 85025; 93005; 93010; 99285-25; J0690; J1200; J1644; J1790; J1815; J2405; J7030; J7121

== ENCOUNTER 2024-04-25 19:25 | Inpatient (IN) | payer OTHER, MEDICARE ==
[~2024-04-25] VITALS: Ht 177.8 cm; Wt 66.2 kg
[2024-04-25] MEDS ORDERED: DIPHTH,PERTUSS(ACELL),TET VAC 0.5 ML SYRINGE IM ONE (19:30)
[2024-04-25] MEDS ORDERED: LACTATED RINGER'S 1,000 ML IV ONE (19:30)
[2024-04-25] MEDS ORDERED: MORPHINE SULFATE 4 MG/ML VIAL IV ONE (19:30)
[2024-04-25 19:38] LABS: BASOPHILS 0.9 % (0-2); EOSINOPHILS 3.8 % (0-6); HEMATOCRIT 38.4 % (35.0-50.0); HEMOGLOBIN 12.8 g/dL (12.0-18.0); LYMPHOCYTES 36.3 % (24-44); MCH 32.1 (27-36); MCHC 33.2 g/dl (30-36); MCV 96.8 fl (81-99); MONOCYTES 6.7 % (0-12); NEUTROPHILS 52.3 % (39-80); PLATELET COUNT 202 K/uL (140-440); RBC 3.97 M/ul (4.3-5.7); RDW 13.4 (10.5-15.0)
[2024-04-25 19:54] LABS: ALBUMIN 3.4 g/dL (3.4-5.0); ALBUMIN/GLOBULIN RATIO 1.03 (1.1-2.4); ALCOHOL, MEDICAL <3 ng/dL (<3); ALKALINE PHOSPHATASE 67 U/L (46-116); ALT (SGPT) 58 U/L (14-59); ANION GAP 16.5 (7-21); AST (SGOT) 39 U/L (15-37); BILIRUBIN, TOTAL 0.4 ng/dL (0.2-1.0); BUN/CREATININE RATIO 13.51 (6.0-28.6); CALCIUM 8.2 mg/dL (8.5-10.1); CARBON DIOXIDE 24 mmol/L (21-32); CHLORIDE 98 mmol/L (98-107); CREATININE, SERUM 1.48 mg/dL (0.70-1.30); GLOMERULAR FILTRATION RATE,EST 55 mL/min (>60); POTASSIUM 4.5 mmol/L (3.5-5.1); PROTEIN, TOTAL 6.7 g/dL (6.4-8.2); UREA NITROGEN 20 mg/dL (7-18)
[2024-04-25 20:13] LABS: ABO B; RH POSITIVE
[2024-04-25 20:14] LABS: ANTIBODY SCREEN NEGATIVE
[2024-04-25 20:59] LABS: BILIRUBIN, URINE NEGATIVE (negative); BLOOD/HGB, URINE SMALL (Negative); KETONE, URINE NEGATIVE (Negative); LEUK ESTERASE, URINE NEGATIVE (negative); NITRITE, URINE NEGATIVE (negative)
[2024-04-25 21:06] LABS: CRYSTALS, URINE NONE SEEN (0-1+); EPITHELIAL CELLS, URINE NONE SEEN /lpf (0-1+); WHITE BLOOD CELLS, URINE 0-1 /HPF (0-5)
[2024-04-25 21:07] LABS: BACTERIA, URINE NONE SEEN /hpf (negative); CASTS, URINE NONE SEEN \\lpf; COLLECTION TYPE, URINE CLEAN CATCH; REFLEX CULTURE, URINE No (No)
[2024-04-25 21:15] LABS: AMPHETAMINES, URINE NEGATIVE (NEGATIVE); BARBITURATES, URINE NEGATIVE (NEGATIVE); BENZODIAZEPINE, URINE NEGATIVE (NEGATIVE); BUPRENORPHINE, URINE NEGATIVE (NEGATIVE); CANNABINOID, URINE POSITIVE (NEGATIVE); COCAINE, URINE NEGATIVE (NEGATIVE); ECSTASY, URINE NEGATIVE (NEGATIVE); FENTANYL, URINE NEGATIVE (NEGATIVE); METHADONE, URINE NEGATIVE (NEGATIVE); OPIATES, URINE POSITIVE (NEGATIVE); OXYCODONE, URINE NEGATIVE (NEGATIVE); PHENCYCLIDINE, URINE NEGATIVE (NEGATIVE)
[2024-04-25] MEDS ORDERED: CEFTRIAXONE/SODIUM CHLORIDE 2 GM/100 ML PIGGYBACK IV SCH ×2 (21:30→21:37)
[2024-04-25] MEDS ORDERED: ALBUTEROL SULFATE 0.083% 3 ML VIAL INH PRN (21:30)
[2024-04-25] MEDS ORDERED: LACTATED RINGER'S 1,000 ML IV SCH ×2 (21:30→23:45)
[2024-04-25] MEDS ORDERED: MORPHINE SULFATE 4 MG/ML VIAL IV PRN (21:30)
[2024-04-25] MEDS ORDERED: ondansetron HCL 4 MG/2 ML VIAL IV PRN ×2 (21:30→23:45)
[2024-04-25] MEDS ORDERED: ACETAMINOPHEN 325 MG TAB PO PRN (21:30)
[2024-04-25] MEDS ORDERED: ENALAPRILAT DIHYDRATE 1.25 MG/ML VIAL IV ONE (21:45)
--- NOTE | 2024-04-25 22:20 | NUR ---
pt ARRIVED TO THE FLOOR VIA STRETCHER. REPORT RECEIVED FROM MARY MARTINEZ. pt TRANSFERED VIA SLIDE SHEET TO MED/SURG BED. ASSESSMENT AND ADMISSION DONE. pt DENIES ANY PAIN AT THIS TIME. DICUSSED STARTING HOME MEDICATIONS WITH MD TRAYLOR. DR. TRAYLOR AGREES. pt DENIES ANY OTHER NEEDS AT THIS TIME. CALL LIGHT WITHIN REACH.
[2024-04-25 22:29] VITALS: BP 176/104
[2024-04-25] MEDS ORDERED: DIVALPROEX SODIUM 500 MG TABEC PO SCH (23:15)
[2024-04-25] MEDS ORDERED: DOXEPIN HCL 50 MG CAP PO SCH (23:15)
[2024-04-25] MEDS ORDERED: ziprasidone HCL 40 MG CAP PO SCH (23:15)
[2024-04-25] MEDS ORDERED: MELATONIN 3 MG TAB PO PRN (23:30)
[2024-04-25] MEDS ORDERED: FAMOTIDINE 20 MG/ 2 ML VIAL IV SCH (23:44)
[2024-04-25] MEDS ORDERED: KETOROLAC TROMETHAMINE 30 MG/ML VIAL IV PRN (23:45)
[2024-04-26] VITALS (9 sets, daily range): BP systolic 119–164; BP diastolic 65–93
[2024-04-26] MEDS ORDERED: MELATONIN 1 MG TAB PO PRN (00:30)
[2024-04-26] MEDS ORDERED: MELATONIN 3 MG TAB PO PRN (00:30)
--- NOTE | 2024-04-26 00:45 | NUR ---
VITAL SIGNS AND ASSESSMENT DONE. pt SCHEDULED MEDICATION ADMINISTERED. pt DENIES ANY OTHER NEEDS AT THIS TIME. CALL LIGHT WITHIN REACH. CMS INTACT.
--- NOTE | 2024-04-26 02:45 | NUR ---
pt RESTING IN THE BED WITH EYES CLOSED. RR EVEN AND UNLABORED. CALL LIGHT WITHIN REACH.
--- NOTE | 2024-04-26 04:18 | NUR ---
pt RESTING IN THE BED WITH EYES CLOSED. RR EVEN AND UNLABORED. CALL LIGHT WITHIN REACH.
[2024-04-26 05:23] LABS: BASOPHILS 0.5 % (0-2); EOSINOPHILS 2.7 % (0-6); HEMATOCRIT 36.1 % (35.0-50.0); HEMOGLOBIN 12.4 g/dL (12.0-18.0); LYMPHOCYTES 16.4 % (24-44); MCH 32.6 (27-36); MCHC 34.3 g/dl (30-36); MCV 95.1 fl (81-99); MONOCYTES 10.1 % (0-12); NEUTROPHILS 70.3 % (39-80); PLATELET COUNT 205 K/uL (140-440); RBC 3.79 M/ul (4.3-5.7); RDW 13.6 (10.5-15.0)
--- NOTE | 2024-04-26 05:28 | NUR ---
pt RESTING IN THE BED. VITAL SIGNS AND ASSESSMENT DONE. CMS IS INTACT. pt REQUESTED URINAL. CALL LIGHT WITHIN REACH. SCHEDULED MEDICATION ADMINSITERED.
[2024-04-26 05:40] LABS: ALBUMIN 3.1 g/dL (3.4-5.0); ALBUMIN/GLOBULIN RATIO 1.03 (1.1-2.4); ANION GAP 10.2 (7-21); BILIRUBIN, TOTAL 0.5 ng/dL (0.2-1.0); BUN/CREATININE RATIO 12.19 (6.0-28.6); CALCIUM 8.2 mg/dL (8.5-10.1); CREATININE, SERUM 1.23 mg/dL (0.70-1.30); POTASSIUM 4.2 mmol/L (3.5-5.1); PROTEIN, TOTAL 6.1 g/dL (6.4-8.2)
[2024-04-26] MEDS ORDERED: ACETAMINOPHEN 500 MG TAB PO SCH (06:00)
--- NOTE | 2024-04-26 07:27 | NUR ---
PT ASLEEP IN BED WITH RESPIRATIONS EVEN AND UNLABORED. CALL LIGHT WITHIN REACH.
--- NOTE | 2024-04-26 07:50 | NUR ---
Board has been updated and call light has been placed within reach
--- NOTE | 2024-04-26 09:04 | NUR ---
PT IN ROOM EATING BREAKFAST WITH CALL LIGHT WITHIN REACH. PT STATES HE ONLY HAS SLIGHT DISCOMFORT TO R) ARM 11/21. SLING IN PLACE. NO REQUESTS AT THIS TIME
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
[2024-04-26] MEDS ORDERED: DIVALPROEX SODIUM 500 MG TABEC PO SCH (11:49)
--- NOTE | 2024-04-26 12:22 | NUR ---
PT EATING LUNCH, NO REQUESTS AT THIS TIME. PAIN 11/21. CALL LIGHT WITHIN REACH.
--- NOTE | 2024-04-26 14:36 | NUR ---
PT AMBULATED TO RESTROOM TO VOID AND THEN WALKED IN HALLWAYS WITH SBA, TOLERATED WELL. PT BACK IN BED WITH SCDS ON, CALL LIGHT WITHIN REACH. NO REQUESTS AT THIS TIME.
--- NOTE | 2024-04-26 16:00 | NUR ---
PT ASLEEP IN BED WITH RESPIRATIONS EVEN AND UNLABORED. O2 SAT 96% ON RA. CALL LIGHT WITHIN REACH.
[2024-04-26] MEDS ORDERED: IBUPROFEN 600 MG TAB PO PRN (17:00)
--- NOTE | 2024-04-26 17:00 | NUR ---
PT ASLEEP IN BED WITH RESPIRATIONS EVEN AND UNLABORED. CALL LIGHT WITHIN REACH.
--- NOTE | 2024-04-26 17:34 | NUR ---
PT AWAKE AND SITTING UP IN BED WITH CALL LIGHT WITHIN REACH. NO REQUESTS AT THIS TIME.
--- NOTE | 2024-04-26 19:07 | NUR ---
PT RESTING IN BED WITH CALL LIGHT WITHIN REACH, NO REQUESTS AT THIS TIME.
--- NOTE | 2024-04-26 20:47 | NUR ---
INTEGRATION ENGINEER AMBULATED HALLWAY WITH PT. PT WALKED UP AND DOWN THE HALLWAY OUT IN FRONT OF HIS ROOM. TOLERATED WELL.
[2024-04-26] MEDS ORDERED: FAMOTIDINE 20 MG TAB PO SCH (21:00)
--- NOTE | 2024-04-26 21:16 | NUR ---
ambulated with scan coordinator, tolerated well, back to bed. Awake, alert and oriented. cooperative with vitals and assessment. On room air. Allevyn top of head, no c/o pain . R arm sling in place, good cms. c/o tenderness bilat ribs. IVF infusing R arm, SL LAC patent. CPOX on at bedside, SCD's on. tolerating liquids well. no c/o pain, will get scheduled Tylenol here soon. hyperverbal, redirectable
[2024-04-27] VITALS (8 sets, daily range): BP systolic 125–174; BP diastolic 71–89
--- NOTE | 2024-04-27 00:29 | NUR ---
RESATING, EYES CLOSED, ON ROOM AIR, CPOX AT BEDSIDE, TELE#4 ON ST, SCDS IN PLACE, R ARM SLING IN PLACE
--- NOTE | 2024-04-27 02:17 | NUR ---
RESTING, EYES CLOSED, NO S/SX DISTRESS, CPOX ON AT BEDSIDE, TELE#[address] SLING IN PLACE R ARM, ELEVATED. IVF INFUSING
--- NOTE | 2024-04-27 03:45 | NUR ---
eyes closed, no s/sx distress, turns and repositions self in bed. Sling on R arm
--- NOTE | 2024-04-27 06:03 | NUR ---
Pt on room air, CPOX in place, IVF infusign w/o problems. Sling R arm, good cms, has been medicated with scheduled tylenol, pain relieved. tolerating liquids well, Voiding QS dark urine. turns and repositions self in bed. Walked hallways, tolerated well
--- NOTE | 2024-04-27 07:23 | NUR ---
Pt report received from JUAN Tyson
--- NOTE | 2024-04-27 07:35 | NUR ---
Board has been updated and call light has been placed within reach
--- NOTE | 2024-04-27 16:20 | NUR ---
Patient is currently in his recliner chair. Room has been tidy up and a linen change was completed. No further request from patient.
--- NOTE | 2024-04-27 20:30 | NUR ---
IN BED, HOB ELEVATED, ALLEVYN DRESSING TO TOP OF HEAD AND R SHOULDER, SLING IN PLACE, GOOD CMS, TRACE EDEMA UPPER ARM/SHOULDER AREA, TENDER TO TOUCH. SL LAC, IVF INFUSING RAC. USES URINAL, LIGHT YELLOW URINE
--- NOTE | 2024-04-27 22:30 | NUR ---
medicated with scheduled tylenol, hob elebated and helped reposition pt in bed, R arm sling repositioned, tender R arm, tolerated well, tele#[address] CCU called that pts HR had gone up to 140's about this time when this RN was assesssing and helping pt. pt denies CP or sob.
[2024-04-28] VITALS (7 sets, daily range): BP systolic 130–173; BP diastolic 72–83
--- NOTE | 2024-04-28 00:11 | NUR ---
Resting, no s/sx distress, CPOX in place, IVF infusing, R arm sling in place. NO further episodes of tachychardia, tele#[address]
--- NOTE | 2024-04-28 01:29 | NUR ---
Resting, cpox at bedside, no s/x distress, Sling on R arm. scds in place. IVF infusing, using urinal, voiding QS
--- NOTE | 2024-04-28 01:57 | NUR ---
AWAKENS EASILY, NO C/O PAIN. SLING R ARM IN PLACE, ICE REMOVED AT THIST DUNIA, TELE DC'D NO FURTHER EPISODES OF TACHYCHARDIA. COOP WITH ASSESSMENT AND VITALS. REPOSITIONS SELF IN BED, USES URINAL
--- NOTE | 2024-04-28 04:29 | NUR ---
RESTING, EYES CLOSED, IVF INFUSING, SLING R ARM INPLACE, CPOX AT BEDSIDE
--- NOTE | 2024-04-28 05:50 | NUR ---
Has slept this shift. On room air. Sling to R arm, edema upper shoulder/arm area. Allevyns to R shoulder and top of head intact. IVF infusing w/o problems. voiding QS urine, uses urinal. SCDs in place. gets Tylenol ATC no c/o pain. Pleasant, hyperverbal but redirectable, cooperative with assessments
--- NOTE | 2024-04-28 06:23 | NUR ---
up to brp, had a had medium bm. voided large amount of medium yellow colored urine. does own delio care, attends given on requests. Up to chair, air cushion in place. ivf infusing, cpox on at bedside
--- NOTE | 2024-04-28 07:17 | NUR ---
PT ASLEEP IN CHAIR WITH RESPIRATIONS EVEN AND UNLABORED. O2 96%. CALL LIGHT WITHIN REACH.
--- NOTE | 2024-04-28 08:26 | NUR ---
Board has been updated and call light has been placed within reach
--- NOTE | 2024-04-28 09:25 | NUR ---
PT UP AMBULATING IN HALLWAY, TOLERATED WELL. PT BACK IN CHAIR WITH CALL LIGHT WITHIN REACH. NO REQUESTS AT THIS TIME.
--- NOTE | 2024-04-28 10:34 | NUR ---
PT RECLINING IN CHAIR, ASLEEP WITH CALL LIGHT WITHING REACH, RESPIRATIONS EVEN AND UNLABORD.
--- NOTE | 2024-04-28 12:16 | NUR ---
PT SITTING IN CHAIR WITH CALL LIGHT AND URINAL WITHIN REACH. NO REQUESTS AT THIS TIME.
--- NOTE | 2024-04-28 13:45 | NUR ---
PT UP AMBULATING IN WATTS WITH SBA, TOLERATED WELL. PT BACK IN BED WITH CALL LIGHT AND URINAL WITHIN REACH.
--- NOTE | 2024-04-28 13:59 | NUR ---
SPOKE TO PATIENT ABOUT THE DISCHARGE PLAN. PATIENT SPEAKS FAST AND THAT MAKES IT HARD TO UNDERSTAND. PATIENT LIVES WITH ERICA BUT DOES NOT HAVE HIS PHONE NUMER SO HE CAN BE CALLED.PATIENT HAS FLIGHT OF IDEAS AND STATES HE DOES NOT LIKE HIS BROTHER OR SISTER. PATIENT DOES NOT KNOW WHERE HIS PHONE IS. TRIED TO CALL [facility]CS TO DISCUSS THE PATIENT AND WAS UNBLE TO TALK TO ANYONE, DARRIN IS WHO PT. SEES. PATIENT IS UNABLE TO TELL ME WHO WILL COME AND GET THE PATIENT WHEN HE IS DISCHARGED AND STAFF HAVE NOT SEEN ANY FANILY. PATIENT FEELS HE IS READY TO GO HOME. PATIENT IS STILL SORE WITH MOVEMENT AND AT THIS TIME VERY LITTLE FAMILY SUPPORT. WILL CONTINUE TO TRY TO CONTACT FAMILY.
--- NOTE | 2024-04-28 14:01 | NUR ---
DR SIMON IN TO SEE PT AND TALK ABOUT PLAN OF CARE.
--- NOTE | 2024-04-28 14:12 | NUR ---
UR CLINICAL REVIEW: 2 MN FOR [facility]ERSAL[facility]-MEETS CRITERIA MEDICARE OBS TO INPATIENT 04/27/24 @ 1101 NO AUTH REQUIRED PER MEDICARE GUIDELINE DISCHARGE PENDING FURTHER CASE MANAGEMENT EVALUATION
--- NOTE | 2024-04-28 16:26 | NUR ---
DR TRAYLOR IN TO SEE PT AND TALK ABOUT POC.
--- NOTE | 2024-04-28 17:09 | NUR ---
AFTER MUCH SEARCHING THE SLATE CUTTER WAS ABLE TO FIND THE PATIENT'S SISTER AND SHE WILL COME UP TO THE HOSPITAL TO TAKE THE PATIENT HOME WHEN DISCHARGED. THE PATIENT'S SISTER'S NAME IS KARL CACERES [phone]. FAMILY DID NOT KNOW THAT THE PATIENT WAS IN THE HOSPITAL. PATIENT UPDATED THAT HIS SISTER IS ON HER WAY TO THE HOSPITAL. SISTERS NAME AND PHONE NUMBER ADDED TO CONTACTS.
--- NOTE | 2024-04-28 17:35 | NUR ---
PT SITTING IN CHAIR VISITING [facility] SISTER.
[2024-04-28] MEDS ORDERED: IBUPROFEN600 MG PO (18:28)
[2024-04-28] MEDS ORDERED: ACETAMINOPHEN500 MG PO (18:29)
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
--- NOTE | 2024-04-28 19:36 | NUR ---
PT GIVEN WHEELCHAIR RIDE TO MAIN ENTRANCE WITH ALL PERSONAL BELONGINGS. ASSISTED PT IN TO PERSONAL VEHICLE WITH SISTER KARL TO TRANSPORT HOME.
--- NOTE | 2024-04-29 09:06 | NUR ---
TRIED TO CALL PT. LEFT FOR PT STATING FU WITH DR. SIMON IS ON 05/06 AT 3:15 P.M. THE NUMBER I CALLED WAS [phone]
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
== END 2024-04-28 19:26 | disposition home or self-care (01) | DRG 183 ==
LOC: ED 19:25 → MS 19:26 → ED 21:23 → MS 23:46
PROVIDERS: Family Medicine; ADMIT Surgery; ATTEND Surgery
DX: S22.43XA Multiple fractures of ribs, bilateral, initial encounter for closed fracture (principal); S27.1XXA Traumatic hemothorax, initial encounter; S27.322A Contusion of lung, bilateral, initial encounter; S42.211A Unspecified displaced fracture of surgical neck of right humerus, initial encounter for closed fracture; F25.9 Schizoaffective disorder, unspecified; I12.9 Hypertensive chronic kidney disease with stage 1 through stage 4 chronic kidney disease, or unspecified chronic kidney disease; E11.22 Type 2 diabetes mellitus with diabetic chronic kidney disease; N18.2 Chronic kidney disease, stage 2 (mild); E78.00 Pure hypercholesterolemia, unspecified; F17.210 Nicotine dependence, cigarettes, uncomplicated; V03.10XA Pedestrian on foot injured in collision with car, pick-up truck or van in traffic accident, initial encounter
CPT/HCPCS: 36415; 70450; 71045; 71260; 72125; 73030; 80053; 80307; 81001; 85025; 86850; 86900; 86901; 90715; 94762; A9270; G0480; J0696; J2270; J7121; Q9967